=== PATIENT | female | born 1945 | race Caucasian/White ===

== ENCOUNTER 2017-07-29 19:08 | Inpatient (IN) | payer MEDICARE, OTHER ==
--- NOTE | 2017-07-29 19:45 | RADIOLOGY REPORT (SQ) ---
EXAM DESCRIPTION: HIP RIGHT AP/LATERAL COMPLETED DATE/TIME: 07/29/2017 7:32 pm REASON FOR STUDY: BED MP S/P FALL WITH TENDERNESS COMPARISON: None. NUMBER OF VIEWS: Two views. TECHNIQUE: AP and frog-leg view of the right hip. LIMITATIONS: None. FINDINGS: MINERALIZATION: Normal. RIGHT HIP: There is a subcapital right hip fracture. There is a resulting varus deformity. OPPOSITE HIP: No fracture or dislocation. No worrisome bone lesions. SOFT TISSUES: No findings. OTHER: No other significant finding. IMPRESSION: Subcapital right hip fracture. TECHNICAL DOCUMENTATION: JOB ID: [id number] [employer]- All Rights Reserved
--- NOTE | 2017-07-29 19:46 | RADIOLOGY REPORT (SQ) ---
EXAM DESCRIPTION: CHEST SINGLE VIEW COMPLETED DATE/TIME: 07/29/2017 7:32 pm REASON FOR STUDY: PRE OP COMPARISON: 02/01/2013 EXAM PARAMETERS: NUMBER OF VIEWS: One view. TECHNIQUE: Single frontal radiographic view of the chest acquired. RADIATION DOSE: NA LIMITATIONS: None. FINDINGS: LUNGS AND PLEURA: No opacities, masses or pneumothorax. No pleural effusion. MEDIASTINUM AND HILAR STRUCTURES: No masses. Contour normal. HEART AND VASCULAR STRUCTURES: Heart normal in size. Normal vasculature. BONES: No acute findings. HARDWARE: None in the chest. OTHER: No other significant finding. IMPRESSION: NO ACUTE RADIOGRAPHIC FINDING IN THE CHEST. TECHNICAL DOCUMENTATION: JOB ID: [id number]
[2017-07-29] MEDS ORDERED: FENTANYL CITRATE INJ/PF 100 MCG/2 ML AMPUL IV ONE (20:18)
[2017-07-29] MEDS ORDERED: BRIMONIDINE TARTRATE OP PRN (20:23)
[2017-07-29] MEDS ORDERED: BIMATOPROST 0.01% OPH SOLN 2.5 ML/BOTTLE OU PRN (20:23)
[2017-07-29] MEDS ORDERED: IPRATROPIUM/ALBUTEROL 0.5-2.5 MG/3 ML AMPUL NEB PRN ×2 (20:26→23:02)
[2017-07-29] MEDS ORDERED: ACETAMINOPHEN 325 MG TABLET PO PRN (20:26)
[2017-07-29] MEDS ORDERED: MAG HYDROX/AL HYDROX/SIMETH SUSP 30 ML UDCUP PO PRN (20:26)
[2017-07-29] MEDS ORDERED: NORMAL SALINE 1000 ML 1,000 ML IV ONE (20:28)
--- NOTE | 2017-07-29 20:28 | ER Document Report ---
ED Hip Pain/Injury - General Chief Complaint: Hip Pain Stated Complaint: FALL/RIGHT HIP PAIN Time Seen by Provider: 07/29/17 19:58 Mode of Arrival: Medic Information source: Patient Notes: Patient is a 72-year-old female who presents to the ER today for right hip pain after falling 11 AM this morning. Patient states that she slipped on concrete outside and fell on that right hip, she denies previous fractures or history of osteoporosis. She states that it hurts a lot worse with movement when she tries to move the right leg. She denies hitting her head or loss of consciousness. She denies any numbness or tingling anywhere. TRAVEL OUTSIDE OF THE [place] IN LAST 30 DAYS: No - Related Data Allergies/Adverse Reactions: Penicillins Allergy (Verified 02/01/13 10:38) Sulfa (Sulfonamide Antibiotics) Allergy (Verified 02/01/13 10:38) Past Medical History - General Information source: Patient - Social History Smoking Status: Never Smoker - Past Medical History Cardiac Medical History: Reports: Hx Hypertension Pulmonary Medical History: Reports: Hx Pneumonia Musculoskeltal Medical History: Reports Hx Arthritis Past Surgical History: Reports: Hx Tonsillectomy, Hx Tubal Ligation - Immunizations Hx Diphtheria, Pertussis, Tetanus Vaccination: No Review of Systems - Review of Systems Constitutional: No symptoms reported EENT: No symptoms reported Cardiovascular: No symptoms reported Respiratory: No symptoms reported Gastrointestinal: No symptoms reported Genitourinary: No symptoms reported Female Genitourinary: No symptoms reported Musculoskeletal: See HPI Skin: No symptoms reported Hematologic/Lymphatic: No symptoms reported Neurological/Psychological: No symptoms reported Physical Exam - Notes Notes: PHYSICAL EXAMINATION: GENERAL: Uncomfortable appearing, lying flat in bed, but in no acute distress. HEAD: Atraumatic, normocephalic. EYES: Pupils equal round and reactive to light, extraocular movements intact, sclera anicteric, conjunctiva are normal. NECK: Normal range of motion, supple without lymphadenopathy LUNGS: CTAB and equal. No wheezes rales or rhonchi. HEART: Regular rate and rhythm without murmurs ABDOMEN: Soft, no tenderness. No guarding, no rebound BACK: no vertebral tenderness, normal ROM GI/: no CVA tenderness EXTREMITIES: Right leg mildly shortened and externally rotated, minimally tender to right lateral hip good distal pulses, good distal sensation, no pitting edema. No cyanosis. NEUROLOGICAL: Cranial nerves grossly intact. Normal sensory/motor exams. PSYCH: Normal mood, normal affect. SKIN: Warm, Dry, normal turgor, no rashes or lesions noted Course - Re-evaluation Re-evalutation: 07/29/17 20:26 Patient has a subcapital right femur fracture with varus deformity. Dr. Monae agrees to see pt in the morning for surgery, NPO after midnight. Dr. Pineda admits to IMCU at this time. pre op workup ordered. Discharge - Discharge Clinical Impression: Subcapital fracture of right femur Qualifiers: Encounter type: initial encounter Fracture type: closed Qualified Code(s): S72.011A - Unspecified intracapsular fracture of right femur, initial encounter for closed fracture Condition: Stable Disposition: ADMITTED INPATIENT Admitting Provider: Hospitalist Unit Admitted: [facility] Referrals: TAM MEEKS MD [Primary Care Provider] - Follow up as needed
[2017-07-29] MEDS ORDERED: HYDRALAZINE HCL INJ/PF 20 MG/1 ML SDV IV PRN (20:50)
[2017-07-29 20:55] LABS: ABSOLUTE BASOPHILS # (AUTO) 0.1 10^3/uL (0.0-0.2); ABSOLUTE LYMPHOCYTES (AUTO) 0.7 10^3/uL (0.5-4.7); ABSOLUTE MONOCYTES (AUTO) 0.9 10^3/uL (0.1-1.4); ABSOLUTE NEUT (AUTO) 10.9 10^3/uL (1.7-8.2); BASOPHILS % (AUTO) 0.4 % (0-2); HEMATOCRIT 51.1 % (36.0-47.0); HEMOGLOBIN 18.3 g/dL (12.0-15.5); HGB HCT DIFFERENCE 3.8; LYMPHOCYTES % (AUTO) 5.8 % (13-45); MEAN CORPUSCULAR HEMOGLOBIN 33.3 pg (27.0-33.4); MEAN CORPUSCULAR HGB CONC 35.8 g/dL (32.0-36.0); MEAN CORPUSCULAR VOLUME 93 fl (80-97); MONOCYTES % (AUTO) 7.3 % (3-13); RED BLOOD COUNT 5.49 10^6/uL (3.72-5.28); RED CELL DISTRIBUTION WIDTH 14.3 % (11.5-14.0); SEGMENTED NEUTROPHILS % (AUTO) 86.5 % (42-78); WHITE BLOOD COUNT 12.6 10^3/uL (4.0-10.5)
[2017-07-29 21:04] LABS: APPEARANCE,URINE CLEAR; BILIRUBIN,URINE NEGATIVE (NEGATIVE); GLUCOSE, URINE NEGATIVE (NEGATIVE); KETONES,URINE 20 mg/dL (NEGATIVE); LEUKOCYTE ESTERASE,URINE NEGATIVE (NEGATIVE); NITRITE,URINE NEGATIVE (NEGATIVE); PROTEIN,URINE NEGATIVE (NEGATIVE); URINE SPECIFIC GRAVITY 1.014; UROBILINOGEN,URINE NEGATIVE mg/dL (<2.0)
[2017-07-29 21:08] LABS: PROTHROMBIN TIME 14.1 SEC (11.4-15.4)
[2017-07-29 21:13] LABS: ALANINE AMINOTRANSFERASE 29 U/L (9-52); ALBUMIN 4.2 g/dL (3.5-5.0); ALKALINE PHOSPHATASE 78 U/L (38-126); ANION GAP 9 (5-19); ASPARTATE AMINO TRANSFERASE 22 U/L (14-36); BILIRUBIN,DIRECT 0.5 mg/dL (0.0-0.4); BILIRUBIN,TOTAL 1.5 mg/dL (0.2-1.3); BLOOD UREA NITROGEN 9 mg/dL (7-20); CALCIUM 10.2 mg/dL (8.4-10.2); CARBON DIOXIDE 30 mmol/L (22-30); CHLORIDE 92 mmol/L (98-107); CREATININE RESULT 0.45 mg/dL (0.52-1.25); GLUCOSE 122 mg/dL (75-110); POTASSIUM 3.5 mmol/L (3.6-5.0); SODIUM 130.8 mmol/L (137-145); TOTAL PROTEIN 6.7 g/dL (6.3-8.2)
[2017-07-29] MEDS ORDERED: LACTULOSE SYRUP 20 GM/30 ML UDCUP PO ONE (22:00)
[2017-07-29] MEDS: HEPARIN SOD (PORCINE) 5,000 UNIT/ML 1 ML SYRINGE SUBCUT SCH (22:24)
--- NOTE | 2017-07-29 22:54 | EKG REPORT ---
SEVERITY:- ABNORMAL ECG - SINUS RHYTHM PROBABLE LVH WITH SECONDARY REPOL ABNRM ANTERIOR Q WAVES, POSSIBLY DUE TO LVH : Confirmed by: Shikha Fernández 29-Jul-2017 22:54:19
[2017-07-30] MEDS: BIMATOPROST 0.01% OPH SOLN 2.5 ML/BOTTLE OU SCH ×2 (00:01→22:37)
[2017-07-30] MEDS: FENTANYL CITRATE INJ/PF 100 MCG/2 ML AMPUL IV PRN ×2 (01:40→08:05)
--- NOTE | 2017-07-30 02:59 | PDOC H&P ---
History of Present Illness Admission Date/PCP: 07/29/17 20:26 TAM MEEKS MD Patient complains of: Right hip pain History of Present Illness: BARTOLOME FERRARO is a 72 year old female with a past medical history of hypertension, GERD, osteoarthritis, osteoporosis, tobacco dependence, COPD and chronic bronchitis who had been in her usual state of health until approximately 1 hour prior to presentation. Patient states she slipped on concrete outside resulting in a fall to the ground injuring her right hip unable to move right leg or bear weight secondary to intractable pain. She is brought to the emergency room and found to have a right subcapital femoral fracture and referred to the hospitalist for admission. Patient denies new medications or feeling unwell prior to fall. She further denies loss of consciousness, limb shaking, head trauma or incontinence. Past Medical History Cardiac Medical History: Reports: Hyperlipidema, Hypertension Pulmonary Medical History: Reports: Bronchitis, Chronic Obstructive Pulmonary Disease (COPD), Pneumonia Musculoskeltal Medical History: Reports: Arthritis Psychiatric Medical History: Reports: Depression, Tobacco Dependency Past Surgical History Past Surgical History: Reports: Tonsillectomy, Tubal Ligation Social History Smoking Status: Current Every Day Smoker Cigarettes Packs Per Day: 2 Number of Years Smokin Last Time Smoked: 07/29/2017 Frequency of Alcohol Use: None Hx Recreational Drug Use: No Drugs: None Hx Prescription Drug Abuse: No - Advance Directive Resuscitation Status: Full Code Family History Family History: COPD, Hypertension Parental Family History Reviewed: Yes Children Family History Reviewed: Yes Sibling(s) Family History Reviewed.: Yes Medication/Allergy Home Medications: Bimatoprost [Lumigan 0.01% Oph Soln 2.5 ml/Bottle] 1 drop BTH_EYE QHS 07/29/17 Gabapentin [Neurontin 300 mg Capsule] 600 mg PO DAILY 07/29/17 Hydrochlorothiazide [Hydrodiuril 25 mg Tablet] 25 mg PO QAM 07/29/17 Omeprazole 40 mg PO Q2D@1000 07/29/17 Oxycodone HCl/Acetaminophen [Percocet 7.5-325 mg Tablet] 1 tab PO 5XDP PRN 07/29 Solifenacin Succinate [Vesicare] 10 mg PO DAILY 07/29/17 Timolol Maleate [Timoptic 0.25% Oph Soln 5 Ml] 1 drop BTH_EYE Q12 07/29/17 Allergies/Adverse Reactions: Penicillins Allergy (Verified 02/01/13 10:38) Sulfa (Sulfonamide Antibiotics) Allergy (Verified 02/01/13 10:38) Review of Systems Constitutional: ABSENT: chills, fever(s), headache(s), weight gain, weight loss Eyes: ABSENT: visual disturbances Ears: ABSENT: hearing changes Cardiovascular: ABSENT: chest pain, dyspnea on exertion, edema, orthropnea, palpitations Respiratory: ABSENT: cough, hemoptysis Gastrointestinal: ABSENT: abdominal pain, constipation, diarrhea, hematemesis, hematochezia, nausea, vomiting Genitourinary: ABSENT: dysuria, hematuria Musculoskeletal: ABSENT: joint swelling Integumentary: ABSENT: rash, wounds Neurological: ABSENT: abnormal gait, abnormal speech, confusion, dizziness, focal weakness, syncope Psychiatric: ABSENT: anxiety, depression, homidical ideation, suicidal ideation Endocrine: ABSENT: cold intolerance, heat intolerance, polydipsia, polyuria Hematologic/Lymphatic: ABSENT: easy bleeding, easy bruising Physical Exam Vital Signs: Temp Pulse Resp BP Pulse Ox 99.5 F 85 18 169/82 H 94 07/29/17 23:02 07/30/17 02:00 07/29/17 23:02 07/29/17 23:02 07/29/17 23:02 Intake & Output 07/28/17 07/29/17 07/30/17 11:59 11:59 11:59 Intake Total 0 Output Total 0 Balance 0 Weight 65.771 kg General appearance: PRESENT: cooperative, mild distress, thin Head exam: PRESENT: atraumatic, normocephalic Eye exam: PRESENT: conjunctiva pink, EOMI, PERRLA. ABSENT: scleral icterus Ear exam: PRESENT: normal external ear exam Mouth exam: PRESENT: moist, tongue midline Neck exam: ABSENT: carotid bruit, JVD, lymphadenopathy, thyromegaly Respiratory exam: PRESENT: crackles, prolonged expiratory phas, symmetrical. ABSENT: accessory muscle use, chest wall tenderness, rales, retraction, rhonchi , stridor Cardiovascular exam: PRESENT: RRR. ABSENT: diastolic murmur, rubs, systolic murmur Pulses: PRESENT: normal dorsalis pedis pul Vascular exam: PRESENT: normal capillary refill GI/Abdominal exam: PRESENT: normal bowel sounds, soft. ABSENT: distended, guarding, mass, organolmegaly, rebound, tenderness Rectal exam: PRESENT: deferred Extremities exam: PRESENT: full ROM, tenderness. ABSENT: calf tenderness, clubbing, pedal edema Neurological exam: PRESENT: alert, awake, oriented to person, oriented to place , oriented to time, oriented to situation, CN II-XII grossly intact. ABSENT: motor sensory deficit Psychiatric exam: PRESENT: appropriate affect, normal mood. ABSENT: homicidal ideation, suicidal ideation Skin exam: PRESENT: dry, intact, warm. ABSENT: cyanosis, rash Results Laboratory Results: 07/29/17 20:40 07/29/17 20:40 07/29/17 07/29/17 07/29/17 20:40 20:40 20:40 WBC 12.6 H RBC 5.49 H Hgb 18.3 H Hct 51.1 H MCV 93 MCH 33.3 MCHC 35.8 RDW 14.3 H Plt Count 192 Seg Neutrophils % 86.5 H Lymphocytes % 5.8 L Monocytes % 7.3 Eosinophils % 0.0 Basophils % 0.4 Absolute Neutrophils 10.9 H Absolute Lymphocytes 0.7 Absolute Monocytes 0.9 Absolute Eosinophils 0.0 Absolute Basophils 0.1 Sodium 130.8 L Potassium 3.5 L Chloride 92 L Carbon Dioxide 30 Anion Gap 9 BUN 9 Creatinine 0.45 L Est GFR ( Amer) > 60 Est GFR (Non-Af Amer) > 60 Glucose 122 H Calcium 10.2 Total Bilirubin 1.5 H AST 22 ALT 29 Alkaline Phosphatase 78 Total Protein 6.7 Albumin 4.2 Urine Color Urine Appearance Urine pH Ur Specific [place] Urine Protein Urine Glucose (UA) Urine Ketones Urine Blood Urine Nitrite Ur Leukocyte Esterase Urine WBC (Auto) Urine RBC (Auto) Blood Type O POSITIVE Antibody Screen NEGATIVE 07/29/17 20:40 WBC RBC Hgb Hct MCV MCH MCHC RDW Plt Count Seg Neutrophils % Lymphocytes % Monocytes % Eosinophils % Basophils % Absolute Neutrophils Absolute Lymphocytes Absolute Monocytes Absolute Eosinophils Absolute Basophils Sodium Potassium Chloride Carbon Dioxide Anion Gap BUN Creatinine Est GFR ( Amer) Est GFR (Non-Af Amer) Glucose Calcium Total Bilirubin AST ALT Alkaline Phosphatase Total Protein Albumin Urine Color YELLOW Urine Appearance CLEAR Urine pH 5.0 Ur Specific [place] 1.014 Urine Protein NEGATIVE Urine Glucose (UA) NEGATIVE Urine Ketones 20 H Urine Blood NEGATIVE Urine Nitrite NEGATIVE Ur Leukocyte Esterase NEGATIVE Urine WBC (Auto) 1 Urine RBC (Auto) 1 Blood Type Antibody Screen Impressions: Chest X-Ray 07/29/17 00:00 IMPRESSION: NO ACUTE RADIOGRAPHIC FINDING IN THE CHEST. Hip/Pelvis X-Ray 07/29/17 00:00 IMPRESSION: Subcapital right hip fracture. Assessment & Plan - Diagnosis (1) COPD (chronic obstructive pulmonary disease) Is this a current diagnosis for this admission?: Yes Plan: At baseline without exacerbation, incentive spirometry, flutter valve, scheduled albuterol and Atrovent (2) Chronic bronchitis Is this a current diagnosis for this admission?: Yes Plan: Secondary to 100 pack year smoking history. Flutter valve, azithromycin, albuterol and Atrovent, (3) Tobacco dependence Is this a current diagnosis for this admission?: Yes Plan: Tobacco Dependence patient received tobacco cessation counseling and offered nicotine replacement options (4) Hypertension Is this a current diagnosis for this admission?: Yes Plan: Hydralazine as needed systolic pressure greater than 160 (5) Subcapital fracture of right femur Qualifiers: Encounter type: initial encounter Fracture type: closed Qualified Code(s) : S72.011A - Unspecified intracapsular fracture of right femur, initial encounter for closed fracture Is this a current diagnosis for this admission?: Yes Plan: Orthopedic surgery consulted, symptomatic management, chest x-ray, incentive spirometry, flutter valve scheduled albuterol and Atrovent. She is able to ambulate a flight of stairs without exceptional shortness of breath but limited by arthritic pain to the knees. Patient has no cardiac or pulmonary modifiable risk factor, justifying a delay for orthopedic surgery. - Time Time Spent: 50 to 70 Minutes - Inpatient Certification Medical Necessity: Need Close Monitoring Due to Risk of Patient Decompensation
[2017-07-30] MEDS ORDERED: POTASSIUM CHLORIDE 10 MEQ TABLET.SA PO ONE (03:00)
[2017-07-30] MEDS ORDERED: AZITHROMYCIN 500 MG in DEXTROSE 5%-WATER 250 ML IV ONE (03:03)
[2017-07-30] MEDS ORDERED: AZITHROMYCIN INJ 500 MG VIAL IV ONE (03:38)
[2017-07-30] MEDS: HEPARIN SOD (PORCINE) 5,000 UNIT/ML 1 ML SYRINGE SUBCUT SCH (05:02)
--- NOTE | 2017-07-30 06:36 | PDOC CONSULTATION ---
Consultation Consult Date: 07/30/17 Consult reason:: Right femoral neck fracture History of Present Illness Admission Date/PCP: 07/29/17 20:26 TAM MEEKS MD History of Present Illness: Patient is a 72-year-old white female who slipped and fell and sustained a right lower extremity injury. She was unable to ambulate. She is brought to the emergency room. Displaced right femoral neck fracture was diagnosed. [facility] is consulted for fracture management. Past Medical History Cardiac Medical History: Reports: Hyperlipidema, Hypertension Pulmonary Medical History: Reports: Bronchitis, Chronic Obstructive Pulmonary Disease (COPD), Pneumonia Musculoskeltal Medical History: Reports: Arthritis Psychiatric Medical History: Reports: Depression, Tobacco Dependency Past Surgical History Past Surgical History: Reports: Tonsillectomy, Tubal Ligation Social History Smoking Status: Current Every Day Smoker Cigarettes Packs Per Day: 2 Number of Years Smokin Last Time Smoked: 07/29/2017 Frequency of Alcohol Use: None Hx Recreational Drug Use: No Drugs: None Hx Prescription Drug Abuse: No - Advance Directive Resuscitation Status: Full Code Family History Family History: COPD, Hypertension Parental Family History Reviewed: No Children Family History Reviewed: No Sibling(s) Family History Reviewed.: No Medication/Allergy Home Medications: Bimatoprost [Lumigan 0.01% Oph Soln 2.5 ml/Bottle] 1 drop BTH_EYE QHS 07/29/17 Gabapentin [Neurontin 300 mg Capsule] 600 mg PO DAILY 07/29/17 Hydrochlorothiazide [Hydrodiuril 25 mg Tablet] 25 mg PO QAM 07/29/17 Omeprazole 40 mg PO Q2D@1000 07/29/17 Oxycodone HCl/Acetaminophen [Percocet 7.5-325 mg Tablet] 1 tab PO 5XDP PRN 07/29 Solifenacin Succinate [Vesicare] 10 mg PO DAILY 07/29/17 Timolol Maleate [Timoptic 0.25% Oph Soln 5 Ml] 1 drop BTH_EYE Q12 07/29/17 Allergies/Adverse Reactions: Penicillins Allergy (Verified 02/01/13 10:38) Sulfa (Sulfonamide Antibiotics) Allergy (Verified 02/01/13 10:38) Review of Systems All systems: as per PMH Physical Exam Vital Signs: Temp Pulse Resp BP Pulse Ox 37.5 C 85 18 169/82 H 94 07/29/17 23:02 07/30/17 02:00 07/29/17 23:02 07/29/17 23:02 07/29/17 23:02 Intake & Output 07/28/17 07/29/17 07/30/17 06:59 06:59 06:59 Intake Total 950 Output Total 0 Balance 950 Weight 65.771 kg General appearance: PRESENT: mild distress Head exam: PRESENT: normocephalic Eye exam: PRESENT: EOMI Respiratory exam: PRESENT: unlabored Cardiovascular exam: PRESENT: RRR Pulses: PRESENT: +1 pedal pulses bilateral Vascular exam: PRESENT: normal capillary refill GI/Abdominal exam: PRESENT: soft Rectal exam: PRESENT: deferred Extremities exam: PRESENT: other - Right lower extremity shortened and externally rotated. There is brisk capillary refill. Neurovascular examination is intact. Neurological exam: PRESENT: alert, awake, oriented to person, oriented to place , oriented to time, oriented to situation. ABSENT: motor sensory deficit Psychiatric exam: PRESENT: appropriate affect, normal mood. ABSENT: homicidal ideation, suicidal ideation Skin exam: PRESENT: dry, intact, warm. ABSENT: cyanosis, rash Results Laboratory Results: 07/29/17 20:40 07/29/17 20:40 07/29/17 07/29/17 07/29/17 20:40 20:40 20:40 WBC 12.6 H RBC 5.49 H Hgb 18.3 H Hct 51.1 H MCV 93 MCH 33.3 MCHC 35.8 RDW 14.3 H Plt Count 192 Seg Neutrophils % 86.5 H Lymphocytes % 5.8 L Monocytes % 7.3 Eosinophils % 0.0 Basophils % 0.4 Absolute Neutrophils 10.9 H Absolute Lymphocytes 0.7 Absolute Monocytes 0.9 Absolute Eosinophils 0.0 Absolute Basophils 0.1 Sodium 130.8 L Potassium 3.5 L Chloride 92 L Carbon Dioxide 30 Anion Gap 9 BUN 9 Creatinine 0.45 L Est GFR ( Amer) > 60 Est GFR (Non-Af Amer) > 60 Glucose 122 H Calcium 10.2 Magnesium Total Bilirubin 1.5 H AST 22 ALT 29 Alkaline Phosphatase 78 Total Protein 6.7 Albumin 4.2 Urine Color Urine Appearance Urine pH Ur Specific [place] Urine Protein Urine Glucose (UA) Urine Ketones Urine Blood Urine Nitrite Ur Leukocyte Esterase Urine WBC (Auto) Urine RBC (Auto) Blood Type O POSITIVE Antibody Screen NEGATIVE 07/29/17 07/29/17 20:40 20:40 WBC RBC Hgb Hct MCV MCH MCHC RDW Plt Count Seg Neutrophils % Lymphocytes % Monocytes % Eosinophils % Basophils % Absolute Neutrophils Absolute Lymphocytes Absolute Monocytes Absolute Eosinophils Absolute Basophils Sodium Potassium Chloride Carbon Dioxide Anion Gap BUN Creatinine Est GFR ( Amer) Est GFR (Non-Af Amer) Glucose Calcium Magnesium 1.8 Total Bilirubin AST ALT Alkaline Phosphatase Total Protein Albumin Urine Color YELLOW Urine Appearance CLEAR Urine pH 5.0 Ur Specific [place] 1.014 Urine Protein NEGATIVE Urine Glucose (UA) NEGATIVE Urine Ketones 20 H Urine Blood NEGATIVE Urine Nitrite NEGATIVE Ur Leukocyte Esterase NEGATIVE Urine WBC (Auto) 1 Urine RBC (Auto) 1 Blood Type Antibody Screen Impressions: Chest X-Ray 07/29/17 00:00 IMPRESSION: NO ACUTE RADIOGRAPHIC FINDING IN THE CHEST. Hip/Pelvis X-Ray 07/29/17 00:00 IMPRESSION: Subcapital right hip fracture. Status: Imported from PACS Assessment & Plan - Diagnosis (1) Displaced fracture of right femoral neck Is this a current diagnosis for this admission?: Yes Plan: 72-year-old female with a displaced right femoral neck fracture. Patient should be treated with a hemiarthroplasty. Gently placed on the schedule today for 11:30 AM. Patient understands the risks and benefits of surgery. The risks include infection, dislocation, persistent leg length inequality, neurovascular injury. - Time Time Spent: 50 to 70 Minutes Anticipated discharge: Home with Homehealth Within: within 48 hours
[2017-07-30] MEDS ORDERED: RINGERS SOLUTION,LACTATED 1,000 ML IV PRN (06:42)
[2017-07-30] MEDS ORDERED: TRANEXAMIC ACID 1,000 MG in DEXTROSE 5%-WATER 50 ML IV ONE (06:45)
[2017-07-30] MEDS ORDERED: VANCOMYCIN HCL 1,000 MG in DEXTROSE 5%-WATER 250 ML IV ONE (06:45)
[2017-07-30] MEDS ORDERED: VANCOMYCIN HCL INJ 1000 MG VIAL ONE (07:08)
[2017-07-30] MEDS ORDERED: TRANEXAMIC ACID INJ/PF 1,000 MG/10 ML SDV IV ONE ×3 (07:09→15:00)
[2017-07-30] MEDS ORDERED: DOCUSATE SODIUM 100 MG CAPSULE PO SCH (10:00)
[2017-07-30] MEDS ORDERED: ESOMEPRAZOLE MAG TRIHYDRATE 10 MG PO SCH (10:00)
[2017-07-30] MEDS: GABAPENTIN 300 MG CAPSULE PO SCH (10:49)
[2017-07-30] MEDS: POTASSIUM CHLORIDE 10 MEQ TABLET.SA PO SCH (10:49)
[2017-07-30] MEDS: TIMOLOL MALEATE 0.25% OPH SOLN 5 ML OU SCH ×2 (10:49→22:37)
[2017-07-30] MEDS: TOLTERODINE TARTRATE 1 MG TABLET PO SCH ×2 (10:49→22:36)
[2017-07-30] MEDS ORDERED: THROMBIN (BOVINE) TOPICAL 20000 UNIT VIAL ONE (11:21)
[2017-07-30] MEDS ORDERED: THROMBIN (BOVINE) 5000 UNIT EPITAXIS KIT ONE (11:21)
[2017-07-30] MEDS ORDERED: BUPIVACAINE INJ/PF LIPOSOME/PF 266 MG/20 ML SDV ONE (11:22)
[2017-07-30] MEDS ORDERED: KETAMINE HCL INJ 500 MG/10 ML VIAL ONE (11:49)
[2017-07-30] MEDS ORDERED: FENTANYL CITRATE INJ/PF 100 MCG/2 ML AMPUL ONE (11:49)
[2017-07-30] MEDS ORDERED: MIDAZOLAM 2 MG/2 ML INJ ONE (11:50)
[2017-07-30] MEDS ORDERED: PROPOFOL INJ 200 MG/20 ML VIAL IV ONE (11:50)
[2017-07-30] MEDS ORDERED: ACETAMINOPHEN 0 ML IV ONE (11:50)
--- NOTE | 2017-07-30 12:55 | Operative Report ---
Operative Report DATE OF SURGERY: 07/30/17 PREOPERATIVE DIAGNOSIS: Displaced right femoral neck fracture OPERATION: Right proximal femoral hemiarthroplasty SURGEON: KATHYA URENA ANESTHESIA: Spinal TISSUE REMOVED OR ALTERED: Femoral head to pathology ESTIMATED BLOOD LOSS: 50 PROCEDURE: With the patient in a left lateral decubitus position the right lower extremity hindquarter prepped and draped in a sterile fashion. A curvilinear incision made over the greater trochanter a posterior approach the hip was taken. The femur was retracted anteriorly and underlying femoral neck and head are retrieved using a corkscrew. The femoral head was measured and noted to be 44 millimeters. Attention is now turned to the femur. Access is gained to the femoral canal using a box osteotome to the piriformis fossa. The femur is then prepared using a series of tapered broaches until a number 5 Kim Accolade 2 broach is seated. A trial reduction was now performed using a 44 head and standard neck. Leg length was restored and there is excellent anterior posterior stability. A decision was made to proceed with this construct. All trial implants were removed. The final number 5 femoral stem is impacted into the canal. The 44 neck is impacted onto the trunnion. Final unipolar head [] millimeters is impacted onto the neck. The hip was reduced. The wound is copiously irrigated with pulsed lavage. A subsequent closed in layers using Vicryl and eduard. A sterile dressing is applied. The patient was returned to the recovery room in satisfactory condition.
[2017-07-30] MEDS ORDERED: MAG HYDROX/AL HYDROX/SIMETH SUSP 30 ML UDCUP PO PRN (12:56)
[2017-07-30] MEDS ORDERED: MORPHINE SULFATE 10 MG/ML INJ IV PRN ×3 (12:56→13:47)
[2017-07-30] MEDS ORDERED: ACETAMINOPHEN 325 MG TABLET PO PRN (12:56)
[2017-07-30] MEDS ORDERED: ONDANSETRON HCL INJ/PF 4 MG/2 ML SDV IV PRN (12:56)
[2017-07-30] MEDS ORDERED: MORPHINE SULFATE 10 MG/ML INJ IM PRN (12:56)
[2017-07-30] MEDS ORDERED: DIPHENHYDRAMINE HCL 50 MG/ML VIAL IV PRN ×2 (12:56→13:47)
[2017-07-30] MEDS ORDERED: ZOLPIDEM TARTRATE 5 MG TABLET PO PRN (12:56)
[2017-07-30] MEDS ORDERED: ONDANSETRON 4 MG TAB.RAPDIS PO PRN (12:56)
[2017-07-30] MEDS ORDERED: FENTANYL CITRATE INJ/PF 100 MCG/2 ML AMPUL IV PRN ×3 (13:47)
[2017-07-30] MEDS ORDERED: MEPERIDINE HCL/PF INJ 25 MG/1 ML DISP.SYRIN IV PRN (13:47)
[2017-07-30] MEDS ORDERED: OXYCODONE-ACETAMINOPHEN 5-325 MG TABLET PO PRN ×2 (13:47)
[2017-07-30] MEDS ORDERED: PROMETHAZINE HCL INJ 25 MG/1 ML VIAL IV PRN ×2 (13:47)
--- NOTE | 2017-07-30 14:16 | RADIOLOGY REPORT (SQ) ---
EXAM DESCRIPTION: PELVIS AP COMPLETED DATE/TIME: 07/30/2017 2:00 pm REASON FOR STUDY: Post Op Long Cassette in PACU COMPARISON: Right hip films 07/29/2017 NUMBER OF VIEWS: AP pelvis, AP right femur to include the prosthesis TECHNIQUE: Digital radiographic images of the right hip post-procedure. LIMITATIONS: None. FINDINGS: BONES: No worrisome or unexpected findings post-procedure. Bones are osteopenic DEVICE: Non cemented right proximal femoral prosthesis. Good alignment. SOFT TISSUES: No worrisome findings. Expected postoperative soft tissue changes. Novoa catheter in the bladder. Old post tubal ligation clips. Degenerative disc changes L5-S1 IMPRESSION: SATISFACTORY POSTOPERATIVE RIGHT HIP. TECHNICAL DOCUMENTATION: JOB ID: [id number] [employer]- All Rights Reserved
[2017-07-30] MEDS ORDERED: MAGNESIUM SULFATE/D5W 1 GM/100 ML RTUPB IV ONE (16:12)
--- NOTE | 2017-07-30 16:17 | PDOC PROGRESS REPORT ---
Subjective Progress Note for:: 07/30/17 Subjective:: Complains of pain in right LE. No SOB or CP. Physical Exam Vital Signs: Temp Pulse Resp BP Pulse Ox 98.5 F 86 16 160/74 H 95 07/30/17 07:53 07/30/17 07:53 07/30/17 07:53 07/30/17 07:53 07/30/17 07:53 Intake & Output 07/29/17 07/30/17 07/31/17 06:59 06:59 06:59 Intake Total 950 Output Total 500 Balance 450 Weight 65.771 kg General appearance: PRESENT: no acute distress Head exam: PRESENT: atraumatic, normocephalic Neck exam: ABSENT: carotid bruit, JVD, lymphadenopathy, thyromegaly Respiratory exam: PRESENT: clear to auscultation kamila. ABSENT: rales, rhonchi, wheezes Cardiovascular exam: PRESENT: RRR. ABSENT: diastolic murmur, rubs, systolic murmur GI/Abdominal exam: PRESENT: normal bowel sounds, soft. ABSENT: distended, guarding, mass, organolmegaly, rebound, tenderness Neurological exam: PRESENT: alert, awake, oriented to person, oriented to place , oriented to time, oriented to situation, CN II-XII grossly intact. ABSENT: motor sensory deficit Psychiatric exam: PRESENT: appropriate affect, normal mood. ABSENT: homicidal ideation, suicidal ideation Skin exam: PRESENT: dry, intact, warm. ABSENT: cyanosis, rash Results Laboratory Results: 07/29/17 20:40 07/29/17 20:40 07/29/17 07/29/17 07/29/17 20:40 20:40 20:40 WBC 12.6 H RBC 5.49 H Hgb 18.3 H Hct 51.1 H MCV 93 MCH 33.3 MCHC 35.8 RDW 14.3 H Plt Count 192 Seg Neutrophils % 86.5 H Lymphocytes % 5.8 L Monocytes % 7.3 Eosinophils % 0.0 Basophils % 0.4 Absolute Neutrophils 10.9 H Absolute Lymphocytes 0.7 Absolute Monocytes 0.9 Absolute Eosinophils 0.0 Absolute Basophils 0.1 Sodium 130.8 L Potassium 3.5 L Chloride 92 L Carbon Dioxide 30 Anion Gap 9 BUN 9 Creatinine 0.45 L Est GFR ( Amer) > 60 Est GFR (Non-Af Amer) > 60 Glucose 122 H Calcium 10.2 Magnesium Total Bilirubin 1.5 H AST 22 ALT 29 Alkaline Phosphatase 78 Total Protein 6.7 Albumin 4.2 Urine Color Urine Appearance Urine pH Ur Specific [place] Urine Protein Urine Glucose (UA) Urine Ketones Urine Blood Urine Nitrite Ur Leukocyte Esterase Urine WBC (Auto) Urine RBC (Auto) Blood Type O POSITIVE Antibody Screen NEGATIVE 07/29/17 07/29/17 20:40 20:40 WBC RBC Hgb Hct MCV MCH MCHC RDW Plt Count Seg Neutrophils % Lymphocytes % Monocytes % Eosinophils % Basophils % Absolute Neutrophils Absolute Lymphocytes Absolute Monocytes Absolute Eosinophils Absolute Basophils Sodium Potassium Chloride Carbon Dioxide Anion Gap BUN Creatinine Est GFR ( Amer) Est GFR (Non-Af Amer) Glucose Calcium Magnesium 1.8 Total Bilirubin AST ALT Alkaline Phosphatase Total Protein Albumin Urine Color YELLOW Urine Appearance CLEAR Urine pH 5.0 Ur Specific [place] 1.014 Urine Protein NEGATIVE Urine Glucose (UA) NEGATIVE Urine Ketones 20 H Urine Blood NEGATIVE Urine Nitrite NEGATIVE Ur Leukocyte Esterase NEGATIVE Urine WBC (Auto) 1 Urine RBC (Auto) 1 Blood Type Antibody Screen Impressions: Chest X-Ray 07/29/17 00:00 IMPRESSION: NO ACUTE RADIOGRAPHIC FINDING IN THE CHEST. Hip/Pelvis X-Ray 07/29/17 00:00 IMPRESSION: Subcapital right hip fracture. Assessment & Plan - Diagnosis (1) COPD (chronic obstructive pulmonary disease) Qualifiers: COPD type: unspecified COPD Qualified Code(s): J44.9 - Chronic obstructive pulmonary disease, unspecified Is this a current diagnosis for this admission?: Yes Plan: currently, she is asymptomatic. Continue Nebs. (2) Hypertension Qualifiers: Hypertension type: essential hypertension Qualified Code(s): I10 - Essential (primary) hypertension Is this a current diagnosis for this admission?: Yes Plan: BP elevated. This may be due to pain. Continue to monitor. (3) Hypokalemia Is this a current diagnosis for this admission?: Yes Plan: She received replacement prior to surgery. Recheck, replace as needed. Her Mag was low normal. I will give her a gram of MagSulfate. (4) Tobacco dependence Is this a current diagnosis for this admission?: Yes Plan: smoking cessation encouraged. Nicotine patch ordered. (5) Displaced fracture of right femoral neck Is this a current diagnosis for this admission?: Yes Plan: Per Ortho. On Xarelto. - Time Time Spent with patient: 25-34 minutes Medications reviewed and adjusted accordingly: Yes Anticipated discharge: Acute Rehab Within: within 48 hours, within 72 hours
[2017-07-30] MEDS ORDERED: NICOTINE 14 MG/24 HR PATCH.TD24 TD ONE (16:30)
[2017-07-30] MEDS: SENNOSIDES/DOCUSATE 8.6-50 MG 1 EACH TABLET PO SCH (18:39)
[2017-07-30] MEDS: OXYCODONE HCL IR 5 MG TABLET PO PRN (19:53)
[2017-07-30] MEDS: IBUPROFEN 800 MG in NORMAL SALINE 250 ML IV SCH (20:51)
[2017-07-30] MEDS: RINGERS SOLUTION,LACTATED 1,000 ML IV PRN (20:52)
[2017-07-30] MEDS ORDERED: AZITHROMYCIN 500 MG in DEXTROSE 5%-WATER 250 ML IV SCH (22:00)
[2017-07-30] MEDS: OXYCODONE HCL SR 10 MG TABLET PO SCH (22:36)
[2017-07-30] MEDS: RIVAROXABAN 10 MG TABLET PO SCH (22:37)
[2017-07-31] MEDS ORDERED: VANCOMYCIN HCL 1,000 MG in DEXTROSE 5%-WATER 250 ML IV ONE (01:00)
[2017-07-31] MEDS: IBUPROFEN 800 MG in NORMAL SALINE 250 ML IV SCH ×3 (04:16→17:48)
[2017-07-31 04:56] LABS: HEMATOCRIT 42.6 % (36.0-47.0); HGB HCT DIFFERENCE 2.4; MEAN CORPUSCULAR HEMOGLOBIN 33.1 pg (27.0-33.4); MEAN CORPUSCULAR HGB CONC 35.1 g/dL (32.0-36.0); MEAN CORPUSCULAR VOLUME 94 fl (80-97); RED BLOOD COUNT 4.52 10^6/uL (3.72-5.28); RED CELL DISTRIBUTION WIDTH 14.5 % (11.5-14.0); WHITE BLOOD COUNT 10.3 10^3/uL (4.0-10.5)
[2017-07-31 05:08] LABS: BLOOD UREA NITROGEN 9 mg/dL (7-20); CHLORIDE 94 mmol/L (98-107); CREATININE RESULT 0.49 mg/dL (0.52-1.25); GLUCOSE 108 mg/dL (75-110); POTASSIUM 4.6 mmol/L (3.6-5.0)
[2017-07-31 05:23] LABS: ANION GAP 7 (5-19); CARBON DIOXIDE 31 mmol/L (22-30); SODIUM 131.9 mmol/L (137-145)
[2017-07-31] MEDS: LANSOPRAZOLE 30 MG TAB.RAP.DR PO SCH (06:43)
--- NOTE | 2017-07-31 07:58 | PDOC PROGRESS REPORT ---
Subjective Progress Note for:: 07/31/17 Subjective:: 72-year-old white female one day status post right hip hemiarthroplasty. Patient is lying recumbent in hospital bed with intermittent pneumatic compression devices on lower extremities bilaterally. Patient states that she is not experiencing any pain in her right hip and her postop dressing is clean dry and in place. Patient does report that she is having issues using the bedpan and is constipated. It was suggested the patient could make use of a bedside commode for bowel movements. Physical Exam Vital Signs: Temp Pulse Resp BP Pulse Ox 36.5 C 77 19 131/77 H 97 07/31/17 03:32 07/31/17 03:32 07/31/17 03:32 07/31/17 03:32 07/31/17 03:32 Intake & Output 07/30/17 07/31/17 08/01/17 06:59 06:59 06:59 Intake Total 950 6050 Output Total 500 4820 Balance 450 1230 Weight 65.771 kg General appearance: PRESENT: no acute distress, well-developed, well-nourished Head exam: PRESENT: atraumatic, normocephalic Pulses: PRESENT: +2 pedal pulses bilateral Vascular exam: PRESENT: normal capillary refill Additional comments: Urinary catheter in place. Additional comments: Postop dressing is in place on the right hip there is brisk capillary refill on the right lower extremity as well as the left lower extremity, she exhibits appropriate passive and active range of motion for this stage of the healing process however exhibits pain with initiation of motion. And her sensory and motor functions are intact. Musculoskeletal exam: PRESENT: ambulatory Additional comments: Patient walked 10 feet with physical therapy. Neurological exam: PRESENT: alert, awake, oriented to person, oriented to place , oriented to time, oriented to situation, CN II-XII grossly intact. ABSENT: motor sensory deficit Psychiatric exam: PRESENT: appropriate affect, normal mood. ABSENT: homicidal ideation, suicidal ideation Skin exam: PRESENT: dry, intact, warm. ABSENT: cyanosis, rash Additional comments: There is evidence of some skin discoloration on bilateral lower extremities likely from peripheral vascular disease. Results Laboratory Results: 07/31/17 04:25 07/31/17 04:25 07/31/17 07/31/17 04:25 04:25 WBC 10.3 RBC 4.52 Hgb 15.0 D Hct 42.6 MCV 94 MCH 33.1 MCHC 35.1 RDW 14.5 H Plt Count 145 L Sodium 131.9 L Potassium 4.6 Chloride 94 L Carbon Dioxide 31 H Anion Gap 7 BUN 9 Creatinine 0.49 L Est GFR ( Amer) > 60 Est GFR (Non-Af Amer) > 60 Glucose 108 Calcium 9.0 Impressions: Chest X-Ray 07/29/17 00:00 IMPRESSION: NO ACUTE RADIOGRAPHIC FINDING IN THE CHEST. Hip/Pelvis X-Ray 07/29/17 00:00 IMPRESSION: Subcapital right hip fracture. Pelvis X-Ray 07/30/17 12:57 IMPRESSION: SATISFACTORY POSTOPERATIVE RIGHT HIP. Assessment & Plan - Diagnosis (1) Subcapital fracture of right femur Qualifiers: Encounter type: subsequent encounter Fracture type: closed Qualified Code (s): S72.011A - Unspecified intracapsular fracture of right femur, initial encounter for closed fracture Is this a current diagnosis for this admission?: Yes Plan: 72-year-old white female one day status post right hip hemiarthroplasty. Patient is doing well with pain management however is experiencing some constipation as well as issues sleeping on her back. Patient will be ordered MiraLAX to help with constipation as well as a bedside commode as needed for bowel movements. Patient was advised to sleep on her left side and extra pillows were requested for patient's comfort in order to obtain better sleep. Patient will likely return home on postop day 3 with home health nursing, bedside commode, wheeled walker, as well as home PT. Patient will then follow- up with [facility] for surgery 2 weeks postoperatively.
[2017-07-31] MEDS ORDERED: POLYETHYLENE GLYCOL 3350 POWDER 17 GM/1 PACKET PO PRN (08:18)
[2017-07-31] MEDS: SENNOSIDES/DOCUSATE 8.6-50 MG 1 EACH TABLET PO SCH ×2 (09:49→17:48)
[2017-07-31] MEDS: POTASSIUM CHLORIDE 10 MEQ TABLET.SA PO SCH (09:50)
[2017-07-31] MEDS: TOLTERODINE TARTRATE 1 MG TABLET PO SCH ×2 (09:50→21:28)
[2017-07-31] MEDS: OXYCODONE HCL SR 10 MG TABLET PO SCH ×2 (09:52→21:26)
[2017-07-31] MEDS: TIMOLOL MALEATE 0.25% OPH SOLN 5 ML OU SCH ×2 (09:54→21:28)
[2017-07-31] MEDS: NICOTINE 14 MG/24 HR PATCH.TD24 TD SCH (09:55)
[2017-07-31] MEDS ORDERED: HYDROCHLOROTHIAZIDE 25 MG TABLET PO SCH (10:00)
[2017-07-31] MEDS: GABAPENTIN 300 MG CAPSULE PO SCH ×2 (10:07→21:31)
[2017-07-31] MEDS: PRENATAL VITAMIN W-O CA NO5/FE FUMARATE/FA CAPSULE PO SCH (10:07)
--- NOTE | 2017-07-31 12:51 | PDOC PROGRESS REPORT ---
Subjective Progress Note for:: 07/31/17 - POD#2 Subjective:: Feeling better today. Pain is well controlled. Complained of constipation. Interval note: Ms. Xiong is a 72-year-old female with history of hypertension and COPD accidentally fell on a curb on the day of admission. As a result, she sustained a right hip fracture. An orthopedic consultation was obtained. She underwent repair July 30, 2017. Her post operative course has been uneventful. Pain has been well managed. She will be discharged to a rehabilitation facility August 03. Physical Exam Vital Signs: Temp Pulse Resp BP Pulse Ox 98.1 F 78 18 145/86 H 94 07/31/17 11:14 07/31/17 11:14 07/31/17 11:14 07/31/17 11:14 07/31/17 11:14 Intake & Output 07/30/17 07/31/17 08/01/17 06:59 06:59 06:59 Intake Total 950 6050 200 Output Total 500 4820 650 Balance 450 1230 -450 Weight 65.771 kg General appearance: PRESENT: no acute distress, well-developed, well-nourished Head exam: PRESENT: atraumatic, normocephalic Respiratory exam: PRESENT: clear to auscultation kamila. ABSENT: rales, rhonchi, wheezes Cardiovascular exam: PRESENT: RRR. ABSENT: diastolic murmur, rubs, systolic murmur GI/Abdominal exam: PRESENT: normal bowel sounds, soft. ABSENT: distended, guarding, mass, organolmegaly, rebound, tenderness Neurological exam: PRESENT: alert, awake, oriented to person, oriented to place , oriented to time, oriented to situation, CN II-XII grossly intact. ABSENT: motor sensory deficit Skin exam: PRESENT: dry, intact, warm. ABSENT: cyanosis, rash Results Laboratory Results: 07/31/17 04:25 07/31/17 04:25 07/31/17 07/31/17 04:25 04:25 WBC 10.3 RBC 4.52 Hgb 15.0 D Hct 42.6 MCV 94 MCH 33.1 MCHC 35.1 RDW 14.5 H Plt Count 145 L Sodium 131.9 L Potassium 4.6 Chloride 94 L Carbon Dioxide 31 H Anion Gap 7 BUN 9 Creatinine 0.49 L Est GFR ( Amer) > 60 Est GFR (Non-Af Amer) > 60 Glucose 108 Calcium 9.0 Impressions: Chest X-Ray 07/29/17 00:00 IMPRESSION: NO ACUTE RADIOGRAPHIC FINDING IN THE CHEST. Hip/Pelvis X-Ray 07/29/17 00:00 IMPRESSION: Subcapital right hip fracture. Pelvis X-Ray 07/30/17 12:57 IMPRESSION: SATISFACTORY POSTOPERATIVE RIGHT HIP. Assessment & Plan - Diagnosis (1) COPD (chronic obstructive pulmonary disease) Qualifiers: COPD type: unspecified COPD Qualified Code(s): J44.9 - Chronic obstructive pulmonary disease, unspecified Is this a current diagnosis for this admission?: Yes Plan: Currently, she is asymptomatic. Continue Nebs. (2) Hypertension Qualifiers: Hypertension type: essential hypertension Qualified Code(s): I10 - Essential (primary) hypertension Is this a current diagnosis for this admission?: Yes Plan: BP has improved. No changes. (3) Hypokalemia Is this a current diagnosis for this admission?: Yes Plan: Resolved. (4) Tobacco dependence Is this a current diagnosis for this admission?: Yes Plan: Smoking cessation encouraged. Nicotine patch ordered. (5) Displaced fracture of right femoral neck Is this a current diagnosis for this admission?: Yes Plan: Per Ortho. On Xarelto. Plan for transfer to rehab August 03. - Time Time Spent with patient: 15-24 minutes Medications reviewed and adjusted accordingly: Yes Anticipated discharge: Acute Rehab - Inpatient Certification Based on my medical assessment, after consideration of the patient's comorbidities, presenting symptoms, or acuity I expect that the services needed warrant INPATIENT care.: Yes I certify that my determination is in accordance with my understanding of Medicare's requirements for reasonable and necessary INPATIENT services [42 CFR 412.3e].: Yes
[2017-07-31] MEDS: RINGERS SOLUTION,LACTATED 1,000 ML IV PRN (18:32)
[2017-07-31] MEDS: RIVAROXABAN 10 MG TABLET PO SCH (21:18)
[2017-07-31] MEDS: BIMATOPROST 0.01% OPH SOLN 2.5 ML/BOTTLE OU SCH (21:28)
[2017-08-01] MEDS: IBUPROFEN 800 MG in NORMAL SALINE 250 ML IV SCH (02:13)
[2017-08-01] MEDS: RINGERS SOLUTION,LACTATED 1,000 ML IV PRN (02:13)
[2017-08-01 05:14] LABS: HEMATOCRIT 39.8 % (36.0-47.0); HEMOGLOBIN 13.8 g/dL (12.0-15.5); HGB HCT DIFFERENCE 1.6; MEAN CORPUSCULAR HEMOGLOBIN 33.1 pg (27.0-33.4); MEAN CORPUSCULAR HGB CONC 34.7 g/dL (32.0-36.0); MEAN CORPUSCULAR VOLUME 95 fl (80-97); RED BLOOD COUNT 4.18 10^6/uL (3.72-5.28); RED CELL DISTRIBUTION WIDTH 14.3 % (11.5-14.0); WHITE BLOOD COUNT 8.7 10^3/uL (4.0-10.5)
[2017-08-01] MEDS: LANSOPRAZOLE 30 MG TAB.RAP.DR PO SCH (05:16)
[2017-08-01] MEDS: SENNOSIDES/DOCUSATE 8.6-50 MG 1 EACH TABLET PO SCH ×2 (10:04→17:50)
[2017-08-01] MEDS: OXYCODONE HCL SR 10 MG TABLET PO SCH (10:04)
[2017-08-01] MEDS: POTASSIUM CHLORIDE 10 MEQ TABLET.SA PO SCH (10:05)
[2017-08-01] MEDS: TOLTERODINE TARTRATE 1 MG TABLET PO SCH ×2 (10:05→21:07)
[2017-08-01] MEDS: NICOTINE 14 MG/24 HR PATCH.TD24 TD SCH (10:06)
[2017-08-01] MEDS: TIMOLOL MALEATE 0.25% OPH SOLN 5 ML OU SCH ×2 (10:44→21:10)
[2017-08-01] MEDS: PRENATAL VITAMIN W-O CA NO5/FE FUMARATE/FA CAPSULE PO SCH (10:44)
[2017-08-01] MEDS: KETOROLAC TROMETHAMINE INJ/PF 30 MG/1 ML SDV IV SCH ×2 (11:58→17:51)
--- NOTE | 2017-08-01 14:11 | PDOC PROGRESS REPORT ---
Subjective Progress Note for:: 08/01/17 Subjective:: Patient seen on morning rounds. She is presently resting comfortably in bed. Admits to increasing incisional pain presently. States she is due for her pain medication. She denies any chest pain, shortness of breath, or dyspnea. Denies any nausea, abdominal pain or diarrhea. She denies any other significant arthralgias or myalgia. Remaining review of systems is negative. Physical Exam Vital Signs: Temp Pulse Resp BP Pulse Ox 97.9 F 82 18 143/76 H 94 08/01/17 11:51 08/01/17 11:51 08/01/17 11:51 08/01/17 11:51 08/01/17 11:51 Intake & Output 07/31/17 08/01/17 08/02/17 06:59 06:59 06:59 Intake Total 6050 5740 100 Output Total 4820 2400 1000 Balance 1230 3340 -900 Weight 77 kg General appearance: PRESENT: no acute distress, well-developed, well-nourished Head exam: PRESENT: atraumatic, normocephalic Eye exam: PRESENT: conjunctiva pink, EOMI, PERRLA. ABSENT: scleral icterus Ear exam: PRESENT: normal external ear exam Mouth exam: PRESENT: moist, tongue midline Neck exam: ABSENT: carotid bruit, JVD, lymphadenopathy, thyromegaly Respiratory exam: PRESENT: clear to auscultation kamila, symmetrical, unlabored. ABSENT: rales, rhonchi, wheezes Cardiovascular exam: PRESENT: RRR. ABSENT: diastolic murmur, rubs, systolic murmur Pulses: PRESENT: normal dorsalis pedis pul Vascular exam: PRESENT: normal capillary refill GI/Abdominal exam: PRESENT: normal bowel sounds, soft. ABSENT: distended, guarding, mass, organolmegaly, rebound, tenderness Rectal exam: PRESENT: deferred Extremities exam: PRESENT: tenderness - right hip incision, other Musculoskeletal exam: PRESENT: ambulatory, tenderness - right hip Neurological exam: PRESENT: alert, awake, oriented to person, oriented to place , oriented to time, oriented to situation, CN II-XII grossly intact. ABSENT: motor sensory deficit Psychiatric exam: PRESENT: appropriate affect, normal mood. ABSENT: homicidal ideation, suicidal ideation Skin exam: PRESENT: dry, intact, warm. ABSENT: cyanosis, rash Results Laboratory Results: 08/01/17 04:45 07/31/17 04:25 08/01/17 04:45 WBC 8.7 RBC 4.18 Hgb 13.8 Hct 39.8 MCV 95 MCH 33.1 MCHC 34.7 RDW 14.3 H Plt Count 142 L Impressions: Chest X-Ray 07/29/17 00:00 IMPRESSION: NO ACUTE RADIOGRAPHIC FINDING IN THE CHEST. Hip/Pelvis X-Ray 07/29/17 00:00 IMPRESSION: Subcapital right hip fracture. Pelvis X-Ray 07/30/17 12:57 IMPRESSION: SATISFACTORY POSTOPERATIVE RIGHT HIP. Assessment & Plan - Diagnosis (1) Displaced fracture of right femoral neck Is this a current diagnosis for this admission?: Yes Plan: Patient is postop day #3 ORIF of right hip. Slated to go to [place] for rehab on Thursday. Will continue with physical therapy. (2) COPD (chronic obstructive pulmonary disease) Qualifiers: COPD type: unspecified COPD Qualified Code(s): J44.9 - Chronic obstructive pulmonary disease, unspecified Is this a current diagnosis for this admission?: Yes Plan: Continue on current inhalers. (3) Hypertension Qualifiers: Hypertension type: essential hypertension Qualified Code(s): I10 - Essential (primary) hypertension Is this a current diagnosis for this admission?: Yes Plan: Presently he is normotensive we will continue current medications. (4) Hypokalemia Is this a current diagnosis for this admission?: Yes Plan: Repleted and monitor (5) Tobacco dependence Is this a current diagnosis for this admission?: Yes Plan: Counseled - Time Time Spent with patient: 25-34 minutes Critical Time spent with patient: 15-24 minutes Medications reviewed and adjusted accordingly: Yes Anticipated discharge: Acute Rehab Within: when bed available
[2017-08-01] MEDS: GABAPENTIN 300 MG CAPSULE PO SCH (21:07)
[2017-08-01] MEDS: OXYCODONE HCL IR 5 MG TABLET PO PRN (21:08)
[2017-08-01] MEDS: BIMATOPROST 0.01% OPH SOLN 2.5 ML/BOTTLE OU SCH (21:10)
[2017-08-01] MEDS: RIVAROXABAN 10 MG TABLET PO SCH (21:10)
[2017-08-02] MEDS: KETOROLAC TROMETHAMINE INJ/PF 30 MG/1 ML SDV IV SCH ×2 (00:47→05:20)
[2017-08-02 04:49] LABS: HEMATOCRIT 41.8 % (36.0-47.0); HEMOGLOBIN 14.6 g/dL (12.0-15.5); MEAN CORPUSCULAR VOLUME 95 fl (80-97); RED BLOOD COUNT 4.43 10^6/uL (3.72-5.28); RED CELL DISTRIBUTION WIDTH 13.9 % (11.5-14.0); WHITE BLOOD COUNT 9.7 10^3/uL (4.0-10.5)
[2017-08-02] MEDS: LANSOPRAZOLE 30 MG TAB.RAP.DR PO SCH (05:20)
--- NOTE | 2017-08-02 07:55 | PDOC PROGRESS REPORT ---
Subjective Progress Note for:: 08/02/17 Subjective:: "Can you tell me what you actually did?" Physical Exam Vital Signs: Temp Pulse Resp BP Pulse Ox 36.3 C 81 18 156/73 H 88 L 08/02/17 03:21 08/02/17 03:21 08/02/17 03:21 08/02/17 03:21 08/02/17 03:21 Intake & Output 08/01/17 08/02/17 08/03/17 06:59 06:59 06:59 Intake Total 5740 1895 Output Total 2400 2400 Balance 3340 -505 Weight 77 kg 79.5 kg General appearance: PRESENT: no acute distress Head exam: PRESENT: normocephalic Respiratory exam: PRESENT: unlabored Cardiovascular exam: PRESENT: RRR Pulses: PRESENT: +1 pedal pulses bilateral Vascular exam: PRESENT: normal capillary refill GI/Abdominal exam: PRESENT: soft Rectal exam: PRESENT: deferred Extremities exam: PRESENT: other - Right hip dressing change. Wound is clean dry and intact. Leg lengths are equal. Distal neurovascular examination is intact. Neurological exam: PRESENT: alert, awake, oriented to person, oriented to place , oriented to time, oriented to situation. ABSENT: motor sensory deficit Psychiatric exam: PRESENT: appropriate affect, normal mood. ABSENT: homicidal ideation, suicidal ideation Skin exam: PRESENT: dry, intact, warm. ABSENT: cyanosis, rash Results Laboratory Results: 08/02/17 04:34 07/31/17 04:25 08/02/17 04:34 WBC 9.7 RBC 4.43 Hgb 14.6 Hct 41.8 MCV 95 MCH 33.0 MCHC 35.0 RDW 13.9 Plt Count 164 Impressions: Chest X-Ray 07/29/17 00:00 IMPRESSION: NO ACUTE RADIOGRAPHIC FINDING IN THE CHEST. Hip/Pelvis X-Ray 07/29/17 00:00 IMPRESSION: Subcapital right hip fracture. Pelvis X-Ray 07/30/17 12:57 IMPRESSION: SATISFACTORY POSTOPERATIVE RIGHT HIP. Status: Imported from [facility] Assessment & Plan - Diagnosis (1) Displaced fracture of right femoral neck Is this a current diagnosis for this admission?: Yes Plan: Patient to continue with physical therapy and weightbearing as tolerated basis. [facility].
[2017-08-02] MEDS ORDERED: BISACODYL 10 MG SUPP.RECT PR PRN (09:00)
[2017-08-02] MEDS: TOLTERODINE TARTRATE 1 MG TABLET PO SCH ×2 (09:49→21:22)
[2017-08-02] MEDS: OXYCODONE HCL IR 5 MG TABLET PO PRN ×2 (09:49→18:54)
[2017-08-02] MEDS: POTASSIUM CHLORIDE 10 MEQ TABLET.SA PO SCH (09:50)
[2017-08-02] MEDS: SENNOSIDES/DOCUSATE 8.6-50 MG 1 EACH TABLET PO SCH ×2 (09:50→18:55)
[2017-08-02] MEDS: PRENATAL VITAMIN W-O CA NO5/FE FUMARATE/FA CAPSULE PO SCH (09:51)
[2017-08-02] MEDS: NICOTINE 14 MG/24 HR PATCH.TD24 TD SCH (09:51)
[2017-08-02] MEDS: TIMOLOL MALEATE 0.25% OPH SOLN 5 ML OU SCH ×2 (09:51→21:24)
[2017-08-02] MEDS: POLYETHYLENE GLYCOL 3350 POWDER 17 GM/1 PACKET PO SCH (11:29)
--- NOTE | 2017-08-02 14:02 | PDOC PROGRESS REPORT ---
Subjective Progress Note for:: 08/02/17 Subjective:: Patient seen on morning rounds. She is presently resting comfortably in bed. She states incisional pain is improved from yesterday. She denies any chest pain, shortness of breath, or dyspnea. Denies any nausea, abdominal pain or diarrhea. She denies any other significant arthralgias or myalgia. Remaining review of systems is negative. Physical Exam Vital Signs: Temp Pulse Resp BP Pulse Ox 98.5 F 86 18 153/98 H 92 08/02/17 11:34 08/02/17 11:34 08/02/17 11:34 08/02/17 11:34 08/02/17 11:34 Intake & Output 08/01/17 08/02/17 08/03/17 06:59 06:59 06:59 Intake Total 5740 1895 240 Output Total 2400 2400 650 Balance 6870 505 -011 Weight 77 kg 79.5 kg General appearance: PRESENT: no acute distress, well-developed, well-nourished Head exam: PRESENT: atraumatic, normocephalic Eye exam: PRESENT: conjunctiva pink, EOMI, PERRLA. ABSENT: scleral icterus Ear exam: PRESENT: normal external ear exam Mouth exam: PRESENT: moist, tongue midline Neck exam: ABSENT: carotid bruit, JVD, lymphadenopathy, thyromegaly Respiratory exam: PRESENT: clear to auscultation kamila. ABSENT: rales, rhonchi, wheezes Cardiovascular exam: PRESENT: RRR. ABSENT: diastolic murmur, rubs, systolic murmur Pulses: PRESENT: normal dorsalis pedis pul Vascular exam: PRESENT: normal capillary refill GI/Abdominal exam: PRESENT: normal bowel sounds, soft. ABSENT: distended, guarding, mass, organolmegaly, rebound, tenderness Rectal exam: PRESENT: deferred Extremities exam: PRESENT: tenderness - right hip. ABSENT: calf tenderness, clubbing, pedal edema Musculoskeletal exam: PRESENT: ambulatory, normal inspection, tenderness Neurological exam: PRESENT: alert, awake, oriented to person, oriented to place , oriented to time, oriented to situation, CN II-XII grossly intact. ABSENT: motor sensory deficit Psychiatric exam: PRESENT: appropriate affect, normal mood. ABSENT: homicidal ideation, suicidal ideation Skin exam: PRESENT: dry, intact, warm, other - right hip incision dressing dry and intact. ABSENT: cyanosis, rash Results Laboratory Results: 08/02/17 04:34 07/31/17 04:25 08/02/17 04:34 WBC 9.7 RBC 4.43 Hgb 14.6 Hct 41.8 MCV 95 MCH 33.0 MCHC 35.0 RDW 13.9 Plt Count 164 Impressions: Chest X-Ray 07/29/17 00:00 IMPRESSION: NO ACUTE RADIOGRAPHIC FINDING IN THE CHEST. Hip/Pelvis X-Ray 07/29/17 00:00 IMPRESSION: Subcapital right hip fracture. Pelvis X-Ray 07/30/17 12:57 IMPRESSION: SATISFACTORY POSTOPERATIVE RIGHT HIP. Assessment & Plan - Diagnosis (1) Displaced fracture of right femoral neck Is this a current diagnosis for this admission?: Yes Plan: Patient is postop day #3 ORIF of right hip. Slated to go to [place] for rehab on Thursday. Will continue with physical therapy. (2) COPD (chronic obstructive pulmonary disease) Qualifiers: COPD type: unspecified COPD Qualified Code(s): J44.9 - Chronic obstructive pulmonary disease, unspecified Is this a current diagnosis for this admission?: Yes Plan: Continue on current inhalers. (3) Hypertension Qualifiers: Hypertension type: essential hypertension Qualified Code(s): I10 - Essential (primary) hypertension Is this a current diagnosis for this admission?: Yes Plan: Presently he is normotensive we will continue current medications. (4) Hypokalemia Is this a current diagnosis for this admission?: Yes Plan: Repleted and monitor (5) Tobacco dependence Is this a current diagnosis for this admission?: Yes Plan: Counseled - Time Time Spent with patient: 25-34 minutes Critical Time spent with patient: 15-24 minutes Medications reviewed and adjusted accordingly: Yes Anticipated discharge: Home with Homehealth
[2017-08-02] MEDS: RIVAROXABAN 10 MG TABLET PO SCH (21:22)
[2017-08-02] MEDS: GABAPENTIN 300 MG CAPSULE PO SCH (21:22)
[2017-08-02] MEDS: BIMATOPROST 0.01% OPH SOLN 2.5 ML/BOTTLE OU SCH (21:24)
[2017-08-03] MEDS: MORPHINE SULFATE 10 MG/ML INJ IV PRN ×2 (00:20→04:01)
[2017-08-03 04:46] LABS: ABSOLUTE BASOPHILS # (AUTO) 0.1 10^3/uL (0.0-0.2); ABSOLUTE EOSINOPHILS # (AUTO) 0.2 10^3/uL (0.0-0.6); ABSOLUTE LYMPHOCYTES (AUTO) 1.6 10^3/uL (0.5-4.7); ABSOLUTE MONOCYTES (AUTO) 1.3 10^3/uL (0.1-1.4); BASOPHILS % (AUTO) 0.7 % (0-2); EOSINOPHILS % (AUTO) 1.7 % (0-6); HEMATOCRIT 42.9 % (36.0-47.0); HEMOGLOBIN 15.3 g/dL (12.0-15.5); LYMPHOCYTES % (AUTO) 15.5 % (13-45); MEAN CORPUSCULAR HEMOGLOBIN 33.7 pg (27.0-33.4); MEAN CORPUSCULAR HGB CONC 35.7 g/dL (32.0-36.0); MEAN CORPUSCULAR VOLUME 94 fl (80-97); MONOCYTES % (AUTO) 12.9 % (3-13); RED BLOOD COUNT 4.55 10^6/uL (3.72-5.28); SEGMENTED NEUTROPHILS % (AUTO) 69.2 % (42-78); WHITE BLOOD COUNT 10.2 10^3/uL (4.0-10.5)
[2017-08-03 04:59] LABS: ANION GAP 7 (5-19); BLOOD UREA NITROGEN 8 mg/dL (7-20); CALCIUM 9.6 mg/dL (8.4-10.2); CARBON DIOXIDE 27 mmol/L (22-30); CHLORIDE 99 mmol/L (98-107); CREATININE RESULT 0.39 mg/dL (0.52-1.25); GLUCOSE 98 mg/dL (75-110); POTASSIUM 4.4 mmol/L (3.6-5.0); SODIUM 133.1 mmol/L (137-145)
[2017-08-03] MEDS: LANSOPRAZOLE 30 MG TAB.RAP.DR PO SCH (05:28)
[2017-08-03] MEDS ORDERED: MAG HYDROX/AL HYDROX/SIMETH SUSP 30 ML UDCUP PO PRN (07:30)
[2017-08-03] MEDS: POLYETHYLENE GLYCOL 3350 POWDER 17 GM/1 PACKET PO SCH (10:48)
[2017-08-03] MEDS: OXYCODONE HCL IR 5 MG TABLET PO PRN ×2 (10:48→20:05)
[2017-08-03] MEDS: POTASSIUM CHLORIDE 10 MEQ TABLET.SA PO SCH (10:50)
[2017-08-03] MEDS: PRENATAL VITAMIN W-O CA NO5/FE FUMARATE/FA CAPSULE PO SCH (10:51)
[2017-08-03] MEDS: TOLTERODINE TARTRATE 1 MG TABLET PO SCH ×2 (10:51→23:51)
[2017-08-03] MEDS: NICOTINE 14 MG/24 HR PATCH.TD24 TD SCH (10:52)
[2017-08-03] MEDS: SENNOSIDES/DOCUSATE 8.6-50 MG 1 EACH TABLET PO SCH ×2 (10:52→17:49)
[2017-08-03] MEDS: TIMOLOL MALEATE 0.25% OPH SOLN 5 ML OU SCH ×2 (10:54→23:52)
[2017-08-03] MEDS ORDERED: IPRATROPIUM/ALBUTEROL 0.5-2.5 MG/3 ML AMPUL NEB PRN (12:56)
--- NOTE | 2017-08-03 13:21 | RADIOLOGY REPORT (SQ) ---
EXAM DESCRIPTION: CHEST PA/LAT COMPLETED DATE/TIME: 08/03/2017 12:33 pm REASON FOR STUDY: Congested cough, hypoxia COMPARISON: None. EXAM PARAMETERS: NUMBER OF VIEWS: two views TECHNIQUE: Digital Frontal and Lateral radiographic views of the chest acquired. RADIATION DOSE: NA LIMITATIONS: none FINDINGS: LUNGS AND PLEURA: Increasing left basilar density with pleural effusion. Right lung clear . Chronic pleural thickening in the lung apices. MEDIASTINUM AND HILAR STRUCTURES: No masses or contour abnormalities. HEART AND VASCULAR STRUCTURES: Heart normal size. No evidence for failure. BONES: No acute findings. HARDWARE: None in the chest. OTHER: No other significant finding. IMPRESSION: INCREASING LEFT BASILAR ATELECTASIS VERSUS INFILTRATE WITH LEFT PLEURAL EFFUSION. RIGHT LUNG CLEAR. TECHNICAL DOCUMENTATION: JOB ID: [id number] [employer]- All Rights Reserved
--- NOTE | 2017-08-03 14:41 | PDOC PROGRESS REPORT ---
Subjective Progress Note for:: 08/03/17 Subjective:: Patient seen on morning rounds. She is presently resting comfortably in bed. She states incisional pain is improved from yesterday. She denies any chest pain, shortness of breath, or dyspnea. She developed a productive cough overnight and increasing oxygen requirements. She denies any nausea, abdominal pain or diarrhea. She denies any other significant arthralgias or myalgia. Remaining review of systems is negative. Physical Exam Vital Signs: Temp Pulse Resp BP Pulse Ox 98.5 F 86 18 160/86 H 96 08/03/17 11:49 08/03/17 11:49 08/03/17 11:49 08/03/17 11:49 08/03/17 11:49 Intake & Output 08/02/17 08/03/17 08/04/17 06:59 06:59 06:59 Intake Total 1895 1370 Output Total 2400 650 Balance -505 720 Weight 79.5 kg 73.9 kg General appearance: PRESENT: no acute distress, thin, well-developed, well- nourished Head exam: PRESENT: atraumatic, normocephalic Eye exam: PRESENT: conjunctiva pink, EOMI, PERRLA. ABSENT: scleral icterus Ear exam: PRESENT: normal external ear exam Mouth exam: PRESENT: moist, tongue midline Neck exam: ABSENT: carotid bruit, JVD, lymphadenopathy, thyromegaly Respiratory exam: PRESENT: clear to auscultation kamila. ABSENT: rales, rhonchi, wheezes Cardiovascular exam: PRESENT: RRR. ABSENT: diastolic murmur, rubs, systolic murmur Pulses: PRESENT: normal dorsalis pedis pul Vascular exam: PRESENT: normal capillary refill GI/Abdominal exam: PRESENT: normal bowel sounds, soft. ABSENT: distended, guarding, mass, organolmegaly, rebound, tenderness Rectal exam: PRESENT: deferred Extremities exam: PRESENT: full ROM. ABSENT: calf tenderness, clubbing, pedal edema Musculoskeletal exam: PRESENT: ambulatory, tenderness - right hip incision and left lower extremity bruise Neurological exam: PRESENT: alert, awake, oriented to person, oriented to place , oriented to time, oriented to situation, CN II-XII grossly intact. ABSENT: motor sensory deficit Psychiatric exam: PRESENT: appropriate affect, normal mood. ABSENT: homicidal ideation, suicidal ideation Skin exam: PRESENT: dry, intact, warm. ABSENT: cyanosis, rash Results Laboratory Results: 08/03/17 04:15 08/03/17 04:15 08/03/17 08/03/17 04:15 04:15 WBC 10.2 RBC 4.55 Hgb 15.3 Hct 42.9 MCV 94 MCH 33.7 H MCHC 35.7 RDW 14.0 Plt Count 186 Seg Neutrophils % 69.2 Lymphocytes % 15.5 Monocytes % 12.9 Eosinophils % 1.7 Basophils % 0.7 Absolute Neutrophils 7.0 Absolute Lymphocytes 1.6 Absolute Monocytes 1.3 Absolute Eosinophils 0.2 Absolute Basophils 0.1 Sodium 133.1 L Potassium 4.4 Chloride 99 Carbon Dioxide 27 Anion Gap 7 BUN 8 Creatinine 0.39 L Est GFR ( Amer) > 60 Est GFR (Non-Af Amer) > 60 Glucose 98 Calcium 9.6 Impressions: Hip/Pelvis X-Ray 07/29/17 00:00 IMPRESSION: Subcapital right hip fracture. Pelvis X-Ray 07/30/17 12:57 IMPRESSION: SATISFACTORY POSTOPERATIVE RIGHT HIP. Chest X-Ray 08/03/17 00:00 IMPRESSION: INCREASING LEFT BASILAR ATELECTASIS VERSUS INFILTRATE WITH LEFT PLEURAL EFFUSION. RIGHT LUNG CLEAR. Assessment & Plan - Diagnosis (1) Displaced fracture of right femoral neck Is this a current diagnosis for this admission?: Yes Plan: Patient is postop day #3 ORIF of right hip. Slated to go to [place] for rehab on Thursday. Will continue with physical therapy. (2) COPD (chronic obstructive pulmonary disease) Qualifiers: COPD type: unspecified COPD Qualified Code(s): J44.9 - Chronic obstructive pulmonary disease, unspecified Is this a current diagnosis for this admission?: Yes Plan: Continue on current inhalers. (3) Hypertension Qualifiers: Hypertension type: essential hypertension Qualified Code(s): I10 - Essential (primary) hypertension Is this a current diagnosis for this admission?: Yes Plan: Presently he is normotensive we will continue current medications. (4) Hypokalemia Is this a current diagnosis for this admission?: Yes Plan: Repleted and monitor (5) Tobacco dependence Is this a current diagnosis for this admission?: Yes Plan: Counseled (6) Atelectasis of left lung Is this a current diagnosis for this admission?: Yes Plan: Incentive spirometry, DuoNeb therapy ambulation (7) Chronic bronchitis Is this a current diagnosis for this admission?: Yes - Time Time Spent with patient: 25-34 minutes Critical Time spent with patient: 15-24 minutes Medications reviewed and adjusted accordingly: Yes Anticipated discharge: Acute Rehab Within: within 24 hours
[2017-08-03] MEDS: KETOROLAC TROMETHAMINE INJ/PF 30 MG/1 ML SDV IV PRN ×2 (15:05→23:49)
[2017-08-03] MEDS: IPRATROPIUM/ALBUTEROL 0.5-2.5 MG/3 ML AMPUL NEB SCH (16:33)
[2017-08-03] MEDS: GABAPENTIN 300 MG CAPSULE PO SCH (23:49)
[2017-08-03] MEDS: RIVAROXABAN 10 MG TABLET PO SCH (23:50)
[2017-08-03] MEDS: BIMATOPROST 0.01% OPH SOLN 2.5 ML/BOTTLE OU SCH (23:52)
[2017-08-04] MEDS: IPRATROPIUM/ALBUTEROL 0.5-2.5 MG/3 ML AMPUL NEB SCH ×4 (00:07→23:50)
[2017-08-04] MEDS: LANSOPRAZOLE 30 MG TAB.RAP.DR PO SCH (05:22)
[2017-08-04] MEDS: OXYCODONE HCL IR 5 MG TABLET PO PRN ×4 (05:23→21:31)
[2017-08-04] MEDS: KETOROLAC TROMETHAMINE INJ/PF 30 MG/1 ML SDV IV PRN ×2 (07:35→15:05)
[2017-08-04] MEDS: PRENATAL VITAMIN W-O CA NO5/FE FUMARATE/FA CAPSULE PO SCH (10:57)
[2017-08-04] MEDS: NICOTINE 14 MG/24 HR PATCH.TD24 TD SCH (10:57)
[2017-08-04] MEDS: POLYETHYLENE GLYCOL 3350 POWDER 17 GM/1 PACKET PO SCH (10:57)
[2017-08-04] MEDS: SENNOSIDES/DOCUSATE 8.6-50 MG 1 EACH TABLET PO SCH ×2 (10:57→17:14)
[2017-08-04] MEDS: POTASSIUM CHLORIDE 10 MEQ TABLET.SA PO SCH (10:57)
[2017-08-04] MEDS: TOLTERODINE TARTRATE 1 MG TABLET PO SCH ×2 (10:58→21:31)
[2017-08-04] MEDS: TIMOLOL MALEATE 0.25% OPH SOLN 5 ML OU SCH ×2 (10:58→21:32)
[2017-08-04] MEDS: METHYLPREDNISOLONE INJ 40 MG/1 ML SDV IV SCH ×2 (14:24→21:32)
--- NOTE | 2017-08-04 15:54 | PDOC PROGRESS REPORT ---
Subjective Progress Note for:: 08/04/17 Subjective:: Patient is seen this morning resting in bed comfortably. She reports that her incisional pain is slightly improved from yesterday, however, she is now experiencing bilateral lower back pain that she believes to be related to constipation. She reports that she has not had a bowel movement since prior admission. She denies associated abdominal pain, nausea, vomiting. Additionally, she continues to have a productive cough and remain on supplemental oxygen throughout the night. Nursing reports increased wheezing. She denies chest pain, shortness of breath, dyspnea. Review of systems is otherwise negative. Physical Exam Vital Signs: Temp Pulse Resp BP Pulse Ox 99.0 F 95 16 128/69 H 92 08/04/17 15:01 08/04/17 15:01 08/04/17 15:01 08/04/17 15:01 08/04/17 15:01 Intake & Output 08/03/17 08/04/17 08/05/17 06:59 06:59 06:59 Intake Total 1370 1756 240 Output Total 650 Balance 720 1756 240 Weight 73.9 kg 77 kg General appearance: PRESENT: no acute distress, cooperative, well-developed, well-nourished Head exam: PRESENT: atraumatic, normocephalic Eye exam: PRESENT: conjunctiva pink, EOMI, PERRLA. ABSENT: scleral icterus Ear exam: PRESENT: normal external ear exam Mouth exam: PRESENT: moist, tongue midline Neck exam: PRESENT: full ROM. ABSENT: carotid bruit, JVD, lymphadenopathy, tenderness, thyromegaly Respiratory exam: PRESENT: symmetrical, unlabored, wheezes - expiratory. ABSENT : crackles, rales, rhonchi Cardiovascular exam: PRESENT: RRR, +S1, +S2. ABSENT: gallop, rubs, systolic murmur Pulses: PRESENT: normal radial pulses, normal dorsalis pedis pul Vascular exam: PRESENT: normal capillary refill GI/Abdominal exam: PRESENT: normal bowel sounds, soft. ABSENT: distended, guarding, mass, rebound, rigid, tenderness Rectal exam: PRESENT: deferred Extremities exam: PRESENT: full ROM. ABSENT: calf tenderness Musculoskeletal exam: PRESENT: tenderness - Rt hip w/ ROM Neurological exam: PRESENT: alert, awake, oriented to person, oriented to place , oriented to time, oriented to situation, CN II-XII grossly intact. ABSENT: motor sensory deficit Psychiatric exam: PRESENT: normal mood Skin exam: PRESENT: dry, warm, other - s/p Rt ORIF; inscision intact and w/o erythema/drainage. ABSENT: cyanosis, rash Results Laboratory Results: 08/03/17 04:15 08/03/17 04:15 Impressions: Hip/Pelvis X-Ray 07/29/17 00:00 IMPRESSION: Subcapital right hip fracture. Pelvis X-Ray 07/30/17 12:57 IMPRESSION: SATISFACTORY POSTOPERATIVE RIGHT HIP. Chest X-Ray 08/03/17 00:00 IMPRESSION: INCREASING LEFT BASILAR ATELECTASIS VERSUS INFILTRATE WITH LEFT PLEURAL EFFUSION. RIGHT LUNG CLEAR. Assessment & Plan - Diagnosis (1) Displaced fracture of right femoral neck Is this a current diagnosis for this admission?: Yes Plan: Patient is postop day #4 ORIF of right hip. Should be ready for discharge to [place] for rehab tomorrow for continued physical therapy. Pain well controlled; will discontinue IV pain medications in preparation for discharge tomorrow. 1-Tylenol and oxycodone as needed pain (2) Atelectasis of left lung Is this a current diagnosis for this admission?: Yes Plan: 1- Continue incentive spirometry 2- DuoNeb as needed 3- Encourage ambulation 4- PT/OT to evaluate and treat per protocols (3) COPD (chronic obstructive pulmonary disease) Qualifiers: COPD type: unspecified COPD Qualified Code(s): J44.9 - Chronic obstructive pulmonary disease, unspecified Is this a current diagnosis for this admission?: Yes Plan: Plan as above. 1- Continue on current inhalers 2-Will treat for exacerbation w/ IV steroids 3- No indication for abx at this time (4) Hypertension Qualifiers: Hypertension type: essential hypertension Qualified Code(s): I10 - Essential (primary) hypertension Is this a current diagnosis for this admission?: Yes Plan: 1- Continue home medications (5) Tobacco dependence Is this a current diagnosis for this admission?: Yes Plan: 1- Encouraged smoking cessation 2- Nicotine replacement therapy (6) Hypokalemia Is this a current diagnosis for this admission?: Yes Plan: Replete (7) Chronic bronchitis Is this a current diagnosis for this admission?: Yes - Time Time Spent with patient: 25-34 minutes Smoking Cessation Education: 3 to 10 minutes Medications reviewed and adjusted accordingly: Yes Anticipated discharge: Acute Rehab - To [facility] for continued PT/OT Within: within 24 hours
[2017-08-04] MEDS: RIVAROXABAN 10 MG TABLET PO SCH (21:30)
[2017-08-04] MEDS: GABAPENTIN 300 MG CAPSULE PO SCH (21:32)
[2017-08-04] MEDS: BIMATOPROST 0.01% OPH SOLN 2.5 ML/BOTTLE OU SCH (21:32)
[2017-08-05] MEDS: LANSOPRAZOLE 30 MG TAB.RAP.DR PO SCH (05:33)
[2017-08-05] MEDS: METHYLPREDNISOLONE INJ 40 MG/1 ML SDV IV SCH ×2 (05:33→14:10)
[2017-08-05] MEDS: IPRATROPIUM/ALBUTEROL 0.5-2.5 MG/3 ML AMPUL NEB SCH ×2 (07:56→16:14)
[2017-08-05] MEDS: OXYCODONE HCL IR 5 MG TABLET PO PRN ×2 (08:48→14:29)
[2017-08-05] MEDS ORDERED: TIOTROPIUM BROMIDE DPI 5 CAP/KIT (18 MCG/CAP) IH SCH (10:00)
[2017-08-05] MEDS ORDERED: SALMETEROL XINAFOATE DISKUS 50 MCG/1 DOSE 28 DOSE IH SCH (10:00)
--- NOTE | 2017-08-05 10:21 | PDOC TRANSFER SUMMARY ---
General - Admit/Disc Date/PCP Admission Date/Primary Care Provider: 07/29/17 20:26 TAM MEEKS MD Discharge Date: 08/05/17 - Discharge Diagnosis (1) Displaced fracture of right femoral neck Is this a current diagnosis for this admission?: Yes Summary: Status post ORIF July 30, 2017 (2) Atelectasis of left lung Is this a current diagnosis for this admission?: Yes Summary: Patient initially required supplemental oxygen; she has been successfully weaned to room air and is maintaining saturations. She is encouraged to increase mobility and ambulation, use incentive spirometer hourly while awake, and turn cough deep breath. (3) COPD (chronic obstructive pulmonary disease) Is this a current diagnosis for this admission?: Yes Summary: Patient is an active smoker. She will be discharged on Serevent and Spiriva. To continue duo nebs as needed wheezing. Will provide Medrol dose pack for wheezing that has resolved after short course of IV Solu-Medrol. (4) Hypertension Is this a current diagnosis for this admission?: Yes Summary: Normotensive during hospitalization. To continue home medications. (5) Tobacco dependence Is this a current diagnosis for this admission?: Yes Summary: Encourage smoking cessation. Nicotine replacement therapy provided while inpatient. (6) Hypokalemia Is this a current diagnosis for this admission?: Yes Summary: Replete. (7) Chronic bronchitis Is this a current diagnosis for this admission?: Yes Summary: Improving. Plan as above. - Additional Information Resuscitation Status: Full Code Discharge Diet: As Tolerated, Cardiac Discharge Activity: Activity As Tolerated Home Medications: Bimatoprost [Lumigan 0.01% Oph Soln 2.5 ml/Bottle] 1 drop BTH_EYE QHS 07/29/17 Gabapentin [Neurontin 300 mg Capsule] 600 mg PO DAILY 07/29/17 Hydrochlorothiazide [Hydrodiuril 25 mg Tablet] 25 mg PO QAM 07/29/17 Omeprazole 40 mg PO Q2D@1000 07/29/17 Solifenacin Succinate [Vesicare] 10 mg PO DAILY 07/29/17 Timolol Maleate [Timoptic 0.25% Oph Soln 5 ml] 1 drop BTH_EYE Q12 07/29/17 Acetaminophen [Tylenol 325 mg Tablet] 650 mg PO Q4HP PRN tablet 08/05/17 Bisacodyl [Dulcolax 10 mg Supp.rect] 10 mg IL DAILYP PRN supp.rect 08/05/17 Brimonidine Tartrate [Alphagan P Eye Drops] 10 ml OP ASDIR PRN 08/05/17 Ipratropium/Albuterol Sulfate [Duoneb 3 ml Ampul] 3 ml NEB RTQ8 vial.neb Mag Hydrox/Al Hydrox/Simeth [Maalox Plus Susp 30 Udcup] 30 ml PO Q6HP PRN udc 08/05/17 Methylprednisolone [Medrol Dosepack (4 mg/Tab) 21 Tab/Dosepak] 4 mg PO ASDIR PRN #21 tab.ds.pk 08/05/17 Nicotine [Nicoderm 14 mg/24 Hr Transdermal Patch] 1 each TD DAILY patch.td24 Oxycodone HCl [Oxy-Ir 5 mg Tablet] 5 mg PO Q6HP PRN #60 tablet 08/05/17 Pnv W-O Ca No5/Fe Fumarate/FA [-U Multiple Vitamin Capsule] 1 cap PO DAILY capsule 08/05/17 Polyethylene Glycol 3350 [Miralax Powder 17 gm/Packet] 17 gm PO DAILY powd.pack 08/05/17 Potassium Chloride [Klor-Con 10 Meq Tablet.sa] 20 meq PO DAILY tablet.sa Rivaroxaban [Xarelto 10 mg Tablet] 10 mg PO QHS tablet 08/05/17 Salmeterol Xinafoate [Serevent Diskus 50 Mcg/Dose 28 Dose/Diskus] 50 mcg IH Q12 disk 08/05/17 Sennosides/Docusate 8.6-50 mg [Senna Plus Tablet] 1 each PO BID tablet Tiotropium [place] [Spiriva Handihaler 5 Cap/Kit (18 Mcg/Cap)] 1 cap IH DAILY kit 08/05/17 Zolpidem Tartrate [Ambien 5 mg Tablet] 5 mg PO HSP PRN #14 tablet 08/05/17 History of Present Illness Admission Date/PCP: 07/29/17 20:26 TAM MEEKS MD History of Present Illness: Patient is a 72-year-old white female who slipped and fell and sustained a right lower extremity injury. She was unable to ambulate. She is brought to the emergency room. Displaced right femoral neck fracture was diagnosed. [facility] is consulted for fracture management. Physical Exam Vital Signs: Temp Pulse Resp BP Pulse Ox 98.2 F 82 16 155/77 H 92 08/05/17 07:33 08/05/17 07:58 08/05/17 07:58 08/05/17 07:33 08/05/17 07:58 Intake & Output 08/04/17 08/05/17 08/06/17 06:59 06:59 06:59 Intake Total 1756 702 Balance 1756 702 Weight 77 kg 73 kg General appearance: PRESENT: no acute distress, cooperative, well-developed, well-nourished Head exam: PRESENT: atraumatic, normocephalic Eye exam: PRESENT: conjunctiva pink, EOMI, PERRLA. ABSENT: conjunctiva pale, scleral icterus Ear exam: PRESENT: normal external ear exam Mouth exam: PRESENT: moist, tongue midline Neck exam: PRESENT: full ROM. ABSENT: JVD, lymphadenopathy, tenderness, thyromegaly Respiratory exam: PRESENT: symmetrical, unlabored, wheezes - Slight expiratory wheeze RLL; improved significantly from yesterday. ABSENT: crackles, rales, rhonchi, tachypnea Cardiovascular exam: PRESENT: RRR, +S1, +S2. ABSENT: gallop, rubs, systolic murmur Pulses: PRESENT: normal dorsalis pedis pul Vascular exam: PRESENT: normal capillary refill GI/Abdominal exam: PRESENT: normal bowel sounds, soft. ABSENT: distended, firm , guarding, mass, organolmegaly, tenderness Rectal exam: PRESENT: deferred Extremities exam: PRESENT: tenderness - Mild; Rt hip s/p ORIF. ABSENT: calf tenderness, pedal edema Musculoskeletal exam: PRESENT: ambulatory, normal inspection Neurological exam: PRESENT: alert, awake, oriented to person, oriented to place , oriented to time, oriented to situation, CN II-XII grossly intact. ABSENT: motor sensory deficit Psychiatric exam: PRESENT: appropriate affect, normal mood Skin exam: PRESENT: dry, intact, normal color, warm Results Laboratory Results: 08/03/17 04:15 08/03/17 04:15 Impressions: Hip/Pelvis X-Ray 07/29/17 00:00 IMPRESSION: Subcapital right hip fracture. Pelvis X-Ray 07/30/17 12:57 IMPRESSION: SATISFACTORY POSTOPERATIVE RIGHT HIP. Chest X-Ray 08/03/17 00:00 IMPRESSION: INCREASING LEFT BASILAR ATELECTASIS VERSUS INFILTRATE WITH LEFT PLEURAL EFFUSION. RIGHT LUNG CLEAR. Transfer Plan - Disposition Transfer Plan: Discharge to [place] for skilled rehab post right hip fracture ORIF - Time Spent with Patient Time spent with patient: Less than 30 Minutes Qualifiers PATEINT BEING DISCHARGED WITH ANY OF THE FOLLOWING DIAGNOSIS?: No Plan Discharge Plan: Items for follow-up: 1-orthopedic follow-up 2-repeat BMP in 7 days.
[2017-08-05] MEDS: POTASSIUM CHLORIDE 10 MEQ TABLET.SA PO SCH (10:26)
[2017-08-05] MEDS: PRENATAL VITAMIN W-O CA NO5/FE FUMARATE/FA CAPSULE PO SCH (10:27)
[2017-08-05] MEDS: TOLTERODINE TARTRATE 1 MG TABLET PO SCH (10:27)
[2017-08-05] MEDS: NICOTINE 14 MG/24 HR PATCH.TD24 TD SCH (10:28)
[2017-08-05] MEDS: POLYETHYLENE GLYCOL 3350 POWDER 17 GM/1 PACKET PO SCH (10:29)
[2017-08-05] MEDS: TIMOLOL MALEATE 0.25% OPH SOLN 5 ML OU SCH (10:29)
[2017-08-05] MEDS: SENNOSIDES/DOCUSATE 8.6-50 MG 1 EACH TABLET PO SCH (10:29)
[2017-08-05 12:03] VITALS: BP 167/69
== END 2017-08-05 16:50 | DRG 470 ==
LOC: ER 19:08 → EH 20:26 → UNDOADMIN 20:39 → EH 20:39 → 3W 22:51
PROVIDERS: ADMIT Internal Medicine; ATTEND Internal Medicine
PROC: 0SRR0JA Replacement of Right Hip Joint, Femoral Surface with Synthetic Substitute, Uncemented, Open Approach (ICD-10-PCS; principal; 2017-07-30 11:30)
DX: S72.011A Unspecified intracapsular fracture of right femur, initial encounter for closed fracture (principal); J98.11 Atelectasis; E87.6 Hypokalemia; W01.0XXA Fall on same level from slipping, tripping and stumbling without subsequent striking against object, initial encounter; Y93.89 Activity, other specified; Y92.89 Other specified places as the place of occurrence of the external cause; Y99.9 Unspecified external cause status; I10 Essential (primary) hypertension; K21.9 Gastro-esophageal reflux disease without esophagitis; M19.90 Unspecified osteoarthritis, unspecified site; M81.0 Age-related osteoporosis without current pathological fracture; J44.9 Chronic obstructive pulmonary disease, unspecified; E78.5 Hyperlipidemia, unspecified; F32.9 Major depressive disorder, single episode, unspecified; F17.210 Nicotine dependence, cigarettes, uncomplicated; Z79.899 Other long term (current) drug therapy; Z88.0 Allergy status to penicillin; Z88.2 Allergy status to sulfonamides
CPT/HCPCS: 01210; 36415; 71010; 71020; 72170; 80048; 80053; 81001; 83735; 85025; 85027; 85610; 85730; 86850; 86900; 86901; 87070; 87077; 87186; 87205; 88304; 88311; 93005; 93010; 94640; 94667; 94668; 94799; 96374; 99285; C9290; G8978-GP; G8979-GP; G8987-GO; G8988-GO; J0131; J0360; J0456; J1741; J1885; J2250; J2270; J2704; J2920; J3010; J3370; J3475; J3490; J7030; J7050; J7060; J7120; J7620

== ENCOUNTER → 2017-08-11 | Outpatient (CLI) | payer MEDICARE, OTHER ==
[2017-08-11 13:50] LABS: ABSOLUTE BASOPHILS # (AUTO) 0.1 10^3/uL (0.0-0.2); ABSOLUTE LYMPHOCYTES (AUTO) 2.7 10^3/uL (0.5-4.7); ABSOLUTE MONOCYTES (AUTO) 0.9 10^3/uL (0.1-1.4); ABSOLUTE NEUT (AUTO) 11.7 10^3/uL (1.7-8.2); BASOPHILS % (AUTO) 0.6 % (0-2); EOSINOPHILS % (AUTO) 0.2 % (0-6); HEMATOCRIT 42.3 % (36.0-47.0); HEMOGLOBIN 14.5 g/dL (12.0-15.5); HGB HCT DIFFERENCE 1.2; LYMPHOCYTES % (AUTO) 17.6 % (13-45); MEAN CORPUSCULAR HEMOGLOBIN 32.8 pg (27.0-33.4); MEAN CORPUSCULAR HGB CONC 34.4 g/dL (32.0-36.0); MEAN CORPUSCULAR VOLUME 95 fl (80-97); MONOCYTES % (AUTO) 5.7 % (3-13); RED BLOOD COUNT 4.43 10^6/uL (3.72-5.28); SEGMENTED NEUTROPHILS % (AUTO) 75.9 % (42-78); WHITE BLOOD COUNT 15.3 10^3/uL (4.0-10.5)
== END ==
LOC: PNR 06:00
PROVIDERS: ATTEND Internal Medicine
DX: S72.011A Unspecified intracapsular fracture of right femur, initial encounter for closed fracture (principal); X58.XXXA Exposure to other specified factors, initial encounter; Y93.9 Activity, unspecified; Y92.9 Unspecified place or not applicable; Y99.9 Unspecified external cause status; J42 Unspecified chronic bronchitis; I10 Essential (primary) hypertension; E87.6 Hypokalemia; J98.11 Atelectasis
CPT/HCPCS: 85025

== ENCOUNTER → 2017-11-17 | Outpatient (CLI) | payer MEDICARE, OTHER ==
--- NOTE | 2017-11-17 16:49 | WOMENS IMAGING REPORT ---
EXAM DESCRIPTION: BILAT SCREENING MAMMO W/CAD COMPLETED DATE/TIME: 11/17/2017 8:45 am REASON FOR STUDY: ROUTINE SCREENING; Z12.31 Z12.31 ENCNTR SCREEN MAMMOGRAM FOR MALIGNANT NEOPLASM O F JONO COMPARISON: 04/29/2016 and 04/06/2009. TECHNIQUE: Standard craniocaudal and mediolateral oblique views of each breast recorded using digita l acquisition. LIMITATIONS: None. FINDINGS: No masses, calcifications or architectural distortion. No areas of suspicion. Read with the assistance of CAD. .[facility] - R2 [employer] Version 1.3 .[facility] - R2 C[employer] Version 1.3 .[facility] - R2 Cenova Version 2.4 .[facility] [place] R2 Cenova Version 2.4 .[facility] - R2 Fundraising Sale Representative Version 9.2 IMPRESSION: NORMAL MAMMOGRAM. BIRADS 1. BREAST DENSITY: b. There are scattered areas of fibroglandular density. BIRAD: 1 NEGATIVE RECOMMENDATION: ROUTINE SCREENING COMMENT: The patient has been notified of the results by letter per MQSA requirements. Additional no tification policies are in place for contacting patient with suspicious or incomplete findings. Quality ID #225: The [employer] recommends an annual screening mammogram for women aged 40 years or over. This facility utilizes a reminder system to ensure that all patients receive reminder letters, and/or direct phone calls for appointments. This includes reminders for routine scr eening mammograms, diagnostic mammograms, or other Breast Imaging Interventions when appropriate. Th is patient will be placed in the appropriate reminder system. The [employer] (ACR) has developed recommendations for screening MRI of the breast s in certain patient populations, to be used in conjunction with mammography. Breast MRI surveillanc e may be appropriate for women with more than 20% lifetime risk of developing breast cancer as deter mined by genetic testing, significant family history of the disease, or history of mantle radiation f or Hodgkins Disease. ACR Practice Guidelines 2008. TECHNICAL DOCUMENTATION: FINDING NUMBER: (1) ASSESSMENT: (1) JOB ID: [id number] [employer]- All Rights Reserved
== END ==
LOC: RAD 08:56
PROVIDERS: ATTEND Internal Medicine
DX: Z12.31 Encounter for screening mammogram for malignant neoplasm of breast (principal)
CPT/HCPCS: 77067; G0202

== ENCOUNTER → 2019-09-15 | Outpatient (CLI) | payer MEDICARE, OTHER ==
--- NOTE | 2019-09-15 11:53 | WOMENS IMAGING REPORT ---
EXAM DESCRIPTION: BILAT SCREENING MAMMO W/CAD COMPLETED DATE/TIME: 09/15/2019 11:19 am REASON FOR STUDY: Z12.31 ENCOUNTER FOR SCREENING MAMMOGRAM FOR MALIGNANT NEOPLASM OF BREAST Z12.31 ENCNTR SCREEN MAMMOGRAM FOR MALIGNANT NEOPLASM OF JONO COMPARISON: [id number] EXAM PARAMETERS: Standard craniocaudal and mediolateral oblique views of each breast recorded using digital acquisition. Read with the assistance of CAD. .[facility] - [employer] Version 9.2 LIMITATIONS: None. FINDINGS: No suspicious masses, suspicious calcifications or architectural distortion. No areas of c oncern. IMPRESSION: Negative MAMMOGRAM. BIRADS 1 BREAST DENSITY: b. There are scattered areas of fibroglandular density. BIRAD: ASSESSMENT: 1 NEGATIVE RECOMMENDATION: ROUTINE SCREENING COMMENT: The patient has been notified of the results by letter per MQSA requirements. Additional no tification policies are in place for contacting patient with suspicious or incomplete findings. Quality ID #225: The [employer] recommends an annual screening mammogram for women aged 40 years or over. This facility utilizes a reminder system to ensure that all patients receive reminder letters, and/or direct phone calls for appointments. This includes reminders for routine scr eening mammograms, diagnostic mammograms, or other Breast Imaging Interventions when appropriate. Th is patient will be placed in the appropriate reminder system. TECHNICAL DOCUMENTATION: FINDING NUMBER: (1) ASSESSMENT: (1) JOB ID: [id number] [employer]- All Rights Reserved Reading location - IP/workstation name: [email or web address]
== END ==
LOC: WI 10:52
PROVIDERS: ATTEND Internal Medicine
DX: Z12.31 Encounter for screening mammogram for malignant neoplasm of breast (principal)
CPT/HCPCS: 77067

== ENCOUNTER → 2020-09-17 | Outpatient (CLI) | payer MEDICARE, OTHER ==
--- NOTE | 2020-09-18 10:03 | WOMENS IMAGING REPORT ---
EXAM DESCRIPTION: BILAT SCREENING MAMMO W/CAD IMAGES COMPLETED DATE/TIME: 09/17/2020 10:16 am REASON FOR STUDY: Z12.31 ENCOUNTER FOR SCREENING MAMMOGRAM FOR MALIGNANT NEOPLASM OF BREAST Z12.31 ENCNTR SCREEN MAMMOGRAM FOR MALIGNANT NEOPLASM OF JONO COMPARISON: 09/15/2019 and 11/17/2017. EXAM PARAMETERS: Standard craniocaudal and mediolateral oblique views of each breast recorded using digital acquisition. Read with the assistance of CAD. .[facility] - R2 [employer] Version 9.2 LIMITATIONS: None. FINDINGS: Findings present which are benign by mammographic criteria. No suspicious masses, calcifi cations or architectural distortion. Pertinent benign findings: Stable calcifications. Benign mammographic findings may include one or more of the following: Smooth masses, popcorn/rim/co arse calcifications, asymmetries, post-procedure changes, and lesions with long-standing stability. IMPRESSION: BENIGN MAMMOGRAPHIC FINDINGS. BIRADS 2 BREAST DENSITY: c. The breasts are heterogeneously dense, which may obscure small masses. BIRAD: ASSESSMENT: 2 BENIGN FINDING(S) RECOMMENDATION: ROUTINE SCREENING COMMENT: The patient has been notified of the results by letter per SA requirements. Additional no tification policies are in place for contacting patient with suspicious or incomplete findings. Quality ID #225: The [employer] recommends an annual screening mammogram for women aged 40 years or over. This facility utilizes a reminder system to ensure that all patients receive reminder letters, and/or direct phone calls for appointments. This includes reminders for routine scr eening mammograms, diagnostic mammograms, or other Breast Imaging Interventions when appropriate. Th is patient will be placed in the appropriate reminder system. TECHNICAL DOCUMENTATION: FINDING NUMBER: (1) ASSESSMENT: (1) JOB ID: [id number] .[employer]- All Rights Reserved Reading location - IP/workstation name: [email or web address] TECHNICIAN-[facility]-RR
== END ==
LOC: WI 09:41
PROVIDERS: ATTEND Internal Medicine
DX: Z12.31 Encounter for screening mammogram for malignant neoplasm of breast (principal)
CPT/HCPCS: 77067